=== PATIENT | female | born 1965 | race African-American/Black ===

== ENCOUNTER 2025-01-30 09:45 | Emergency (ER) | payer OTHER, BC, SELFPAY ==
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
--- NOTE | ~2025-01-30 | XR_ITS ---
AP view of the pelvis and AP and lateral views of the left hip Clinical history: Pain Findings: No acute fracture or dislocation is seen. Osseous alignment is anatomic. Bilateral hip and SI joint spaces are preserved. Soft tissues are unremarkable. Impression: No significant abnormality is seen. Reviewed, dictated and finalized at [facility]. Impression: No significant abnormality is seen.
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
[2025-01-30 09:51] VITALS: BP 172/84; PULSE 87; RESP 20; TEMP 36.4; O2SAT 97
[2025-01-30 10:48] VITALS: BP 148/76; PULSE 81; RESP 14; O2SAT 99
[2025-01-30 11:16] VITALS: BP 149/73; PULSE 77; RESP 14; O2SAT 99
[2025-01-30] MEDS: TETANUS,DIPHTHERIA,AC PERTUSSIS ADULT (0.5 ML) BOOSTRIX IM (13:04)
[2025-01-30 13:05] VITALS: BP 159/73; PULSE 77; RESP 17; O2SAT 100
--- OUTSIDE RECORDS SUMMARY | 2025-01-30 13:19 | XMS_ITS | Referral Summary ---
Author Organization [facility] Medical [facility] [address] Address [address] [place] [address] Care Team Providers Care Hotel Operations Manager Name Role Phone Mark Mcgregor MD Primary Care Provider [phone] Allergies Active Allergy Reactions Criticality Noted Date Comments Lisinopril Cough Low 12/30/2022 Medications aspirin 81 mg enteric coated tabletIndications: prevention of thrombosis Take 1 tablet (81 mg total) by mouth every morning Active carvedilol (COREG) 25 mg tabletIndications: hypertension Take 1 tablet (25 mg total) by mouth 2 (two) times a day with meals Active insulin glargine (TOUJEO) 300 unit/mL (1.5 mL) pen for injectionIndicatio ns:type 2 diabetes mellitus Inject 25 Units under the skin nightly Active solifenacin (VESIcare) 10 mg tabletIndications: Bladder Hyperactivity Take 1 tablet (10 mg total) by mouth nightly Active Synjardy XR 12.5-1,000 mg tablet, IR & ER, biphasic 24hrIndications:ty pe 2 diabetes mellitus Take 1 tablet by mouth 2 (two) times a day 10/11/20 22 Active dorzolamide-timolo l (COSOPT) 2-0.5 % ophthalmic solutionIndication s:open angle glaucoma Administer 1 drop into the right eye 2 (two) times a day 11/26/19 23 Active Afrezza 12 unit cartridge, w/inhalation deviceIndications: type 2 diabetes mellitus Inhale 12 Units 3 (three) times a day before meals 11/21/19 23 Active fluticasone propionate (FLONASE) 50 mcg/actuation nasal sprayIndications:A llergic Rhinitis Administer 2 sprays into each nostril daily as needed for rhinitis Active calcium carbonate/vitamin D3 (CALCIUM WITH VITAMIN D ORAL)Indications:s upplement Take 1,200 mg by mouth every morning Active cholecalciferol 25 mcg (1,000 unit) tabletIndications: Vitamin D Deficiency Take 1 tablet (1,000 Units total) by mouth nightly Active FreeStyle Janes 14 Day Sensor kitIndications:anahi harjit Inject under the skin continuous 01/06/20 23 Active atorvastatin (LIPITOR) 40 mg tabletIndications: hyperlipidemia Take 1 tablet (40 mg total) by mouth every morning 01/13/20 23 Active omeprazole (PriLOSEC) 20 mg capsuleIndications :Stress Ulcer Prophylaxis Take 1 capsule (20 mg total) by mouth every morning Active ondansetron ODT (ZOFRAN-ODT) 4 mg disintegrating tabletIndications: Prevention of Post-Operative Nausea and Vomiting Take 1 tablet (4 mg total) by mouth every 8 (eight) hours as needed for nausea or vomiting 12 tablet 02/06/20 23 Active Additional Information Patient not taking.Informant: Self, Reported on 08/19/2023 semaglutide (RYBELSUS) 7 mg tabletIndications: type 2 diabetes mellitus Take 1 tablet (7 mg total) by mouth daily before breakfast Active ezetimibe (ZETIA) 10 mg tabletIndications: hyperlipidemia Take 1 tablet (10 mg total) by mouth every morning Active omeprazole (PriLOSEC) 40 mg capsule Take 1 capsule (40 mg total) by mouth every morning 06/03/20 23 Active TRESIBA 200 unit/mL (3 mL) pen for injection Inject 25 units every day by subcutaneous route in the morning. 06/30/20 23 Active erythromycin (ILOTYCIN) ophthalmic ointment Apply to left eye 2 (two) times a day as needed (mucous discharge or crusting) Apply to left eye twice a day as needed for mucous discharge or crusting 3.5 g 11 11/16/19 24 Active clobetasoL (TEMOVATE) 0.05 % ointment APPLY TO AFFECTED AREA TWICE A DAY 30 g 2 12/11/19 25 Active Active Problems Problem Noted Date Diagnosed Date Discharge of eye, left 11/18/2023 Assessment & Plan (11/18/2023 12:53 PM STAFF READINESS OFFICER): Erythromycin ophthalmic ointment prescribed to be used BID PRN for mucous discharge. She will return in 1 year or sooner if mucous discharge worsens. 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 She demonstrates appropriate healing -- she has had the prosthesis refit but may benefit from increased prosthesis volume superiorly to increase lid height. She will return in 1 year for annual follow up. Assessment & Plan (06/24/2023 2:19 PM CDT): Arleth Sanchez is doing well after Left Internal Ptosis Repair - Left on 06/10/2023. She demonstrates excellent healing and has been referred for prosthesis adjustment if needed and will follow up in 2 months. Assessment & Plan (05/30/2023 6:34 PM CDT): Left upper eyelid ptosis with complications associated with ocular prosthesis in setting of left anophthalmos. Risks, benefits and alternatives were discussed. Risks of surgery included but were not limited to pain, infection, bleeding, scarring, eyelid asymmetry, need for additional procedures, anesthetic morbidity. Following this discussion, the patient wishes to proceed with left internal upper eyelid ptosis repair. We will schedule this in the near future. Anophthalmos of left eye 04/15/2023 Assessment & Plan (04/15/2023 12:50 PM CDT): Arleth Sanchez is doing well after Left Enucleation Eye With Donor Sclera Covered Implant - Left and TARSORRHAPHY- temporary - Left on 02/05/2023. She demonstrates excellent healing with moderate left upper eyelid ptosis. She is seeing Yesica Parks to determine if additional augmentation can address ptosis. If not possible with prosthesis changes, we have discussed possible left upper eyelid ptosis repair. Neovascular glaucoma of left eye, indeterminate stage 05/02/2019 Assessment & Plan (05/02/2019 2:23 PM CDT): PDR 2/2 to diabetes mellitus (DM) II H/o neovascular glaucoma (NVG), Tmax 35 no light perception (NLP) on the left eye for a year now Anterior chamber with large chronic hyphema -Discussed diode LIQUID HYDROGEN PLANT OPERATOR - pt would prefer to try drops since now not having much pain. Atropine and PF. If pt has pain, she will call to schedule diode LIQUID HYDROGEN PLANT OPERATOR OS. Also discussed enucleation. pt deferred. 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 Hester Ocular hypertension of right eye 05/02/2019 Assessment & Plan (05/02/2019 2:23 PM CDT): Thick CCT and large disc intraocular pressure (IOP) 15 today OCT with borderline inferior thinning Maurer visual field (HVF) with nonspecific defects, status post (s/p) panretinal photocoagulation (PRP) Monitor right for now, no need for further intervention - ok to follow with Dr. Guallpa Resolved Problems Problem Noted Date Diagnosed Date Resolved Date Blind painful left eye 12/31/202204/15 Overview (12/31/2022): Added automatically from request for surgery [id number] Assessment & Plan (12/31/2022 9:48 PM CDT): We had a lengthy discussion with the patient regarding the management options. The nature and risks of enucleation have been discussed in detail including anesthesia, scarring, infection, bleeding, use of donor material, implant migration- extrusion and the possible need for additional treatment. A prosthetic has been demonstrated and care discussed. The need for eye safety and protective eyewear have been covered. They would like to schedule a treatment in the near future as the discomfort is significantly interfering with activities of daily living. Social History Tobacco Use Types Packs/Day Years Used Date Smoking Tobacco: Never Smokeless Tobacco: Never Tobacco Cessation:Counseling Given: Not Answered Alcohol Use Standard Drinks/Week Comments Never 0 (1 standard drink = 0.6 oz pur e alcohol) AUDIT-C Answer Date Recorded Q1: How often do you have a drink containing alc ohol? Monthly or less 06/10/2023 Q2: How many drinks containi ng alcohol do you have on a typical day when you are drinking? 1 or 2 06/10/2023 Q3: How often do you have si x or more drinks on one occasion? Never 06/10/2023 Personal Safety Answer Date Recorded Have you ever been in or are you currently in a harmful physical or emotional relationship or is someone making you feel afraid or unsafe? Denies 06/10/2023 Comments No Sex and Gender Information Value Date Recorded Sex Assigned at Not on file Legal Sex Female 7:11 PM STAFF READINESS OFFICER Gender Identity Not on file Sexual Orientation Not on file Last Filed Vital Signs Vital Sign Reading Time Taken Comments Blood Pressure 130/78 08/19/2023 1:00 PM CDT Pulse 83 06/10/2023 12:26 PM CDT Temperature 36.3 C (97.3 F) 06/10/2023 12:00 PM CDT Respiratory Rate 18 06/10/2023 12:26 PM CDT Oxygen Saturation 100% 06/10/2023 12:26 PM CDT Inhaled Oxygen Concentration - - Weight 119.7 kg (264 lb) 08/19/2023 1:00 PM CDT Height 182.9 cm (6') 08/19/2023 1:00 PM CDT Body Mass Index 35.8 08/19/2023 1:00 PM CDT Plan of Treatment Not on file Medical Devices Implanted Type Area Internal Controls Manager Device Identifier Shelf Expiration Date Model / Serial / Lot Implant Cornea Sclera Whole Left - [id number] - [id number] Implanted:Qty: 1 on 02/05/2023 by Umer Villegas MD at [facility] Left: Eye [employer] 09/07/2023 [id number] / [id number] / [id number] [employer] Mona 22mm 22mm Hard Lightweight Inert Virtually Unbreakable [id number] - [id number] Implanted:Qty: 1 on 02/05/2023 by Umer Villegas MD at [facility] Advanced [facility] Left: Eye [employer] [id number] 10/17/2024 [id number] / / [id number] Procedures Procedure Name Priority Date/Time Associated Diagnosis Comments SCREENING MAMMOGRAM BILATERAL W TIMOTHY Schedule Routine, Read Routine (OP Routine) 09/21/2024 10:58 AM STAFF READINESS OFFICER Encounter for screening mammogram for malignant neoplasm of breast HIGH RISK HPV DNA DETECTION WITH GENOTYPING Routine 08/19/2023 2:54 PM CDT Well woman exam with routine gynecological exam EGFR STAT 08/10/2022 3:33 PM CDT from Last 3 Months or Most Recently Relevant to Health Maintenance Results * Screening Mammogram Bilateral W Timothy (09/21/2024 10:58 AM STAFF READINESS OFFICER) Anatomical Region Laterality Modality Breast Bilateral Mammography Impressions 09/21/2024 11:05 AM STAFF READINESS OFFICER BI-RADS ATLAS category (overall): 1 - Negative There is no mammographic evidence of malignancy. A 1 year screening mammogram is recommended. The patient has been or will be contacted. We recommend annual screening mammography for women at average risk of breast cancer beginning at age 40, based on guidelines of the [place] [employer] (ACR Practice Parameter for the Performance of Screening and Diagnostic Mammography) and [place] [employer]. For women with and elevated risk of breast cancer, please refer to the ACR Practice Parameter for specific screening recommendations. The patient will be entered into a reminder system with a target due date of 1 year for her next screening exam. Narrative 09/21/2024 11:05 AM STAFF READINESS OFFICER Screening Mammogram Bilateral W Timothy: 09/21/24 The study was acquired using full field digital technology and interpreted from soft copy. 2D digital mammographic views, as well as 3D digital tomosynthesis were performed in the CC and MLO projections. This study was resulted using Computer-Aided Detection (CAD). CLINICAL: Encounter for screening mammogram for malignant neoplasm of breast. Medical history includes hypertension, diabetes mellitus, PONV, motion sickness, and sleep apnea. History of breast cancer in Mother's Sister. COMPARISONS: 07/01/2023 Screening Mammogram Bilateral W Timothy 12/10/2021 Screening Mammogram Bilateral W Timothy 03/06/2020 Screening Mammogram Bilateral W Timothy BREAST TISSUE: The breasts are almost entirely fatty. FINDINGS: No suspicious masses, suspicious calcifications, or other suspicious findings are seen within either breast. There has been no suspicious change. Mark Mcgregor MD IMG MAMMO PROCEDURES Final Resul t * High Risk HPV DNA Detection with Genotyping (Molecular component) (08/19/2023 2:54 PM CDT) HPV HR 16 Not Detected Not Detected BUNNY Comment:Testing performed by : [facility], [address] [place]., [address] HPV HR 18 Not Detected Not Detected BUNNY Comment:Testing performed by : [facility], [address] [place]., [address] HPV HR Non 16/18 Not Detected Not Detected BUNNY Comment: Interpretive Data Nucleic acid amplification for detection of high-risk Human Papilloma virus (HPV) is performed by the Lilly Bienvenido 6800 HPV test. This assay specifically detects HPV-16 and HPV-18 genotypes. The following HPV genotypes are detected as high-risk HPV: HPV-31, 33, 35, ,39, 45, 51, 52, 56, 58, 59, 66, and 68. This assay has been approved by the [place] Food and Drug Administration for detection of HPV in cervical specimens collected by a physician using an endocervical brush/spatula or cervical broom and placed in the ThinPrep Pap Test PreservCyt collection containers. The performance characteristics of this test have been verified by the [facility] Molecular Infectious Disease laboratory. Correlate with separately reported cytology results, as applicable. Interpretive data last revised 23 Testing performed by: [facility], [address] [place]., [address] Endocervical 08/19/2023 2:54 PM CDT 08/23/2023 2:48 PM STAFF READINESS OFFICER Narrative [facility] - 08/24/2023 3:02 AM STAFF READINESS OFFICER Clinical history and diagnosis->screening Number of vials->1 Testing type->Screening Last menstrual period (date if known)->Postmenopausal Elzbieta Fortune MD LAB BODY FLUIDS AND STOOLS ORD ERABLES Final Result Performing Organization Address [facility] Co de Phone Number [facility] [address] [place] [address] * eGFR (08/10/2022 3:33 PM CDT) eGFR 74 mL/min/1. 73 m2 BUNNY Comment: Interpretive Data Reference Interval Normal >/= 90 mL/min/1.73m2 Mildly decreased* 60 - 89 mL/min/1.73m2 Mildly to moderately decreased 45 - 59 mL/min/1.73m2 Moderately to severely decreased 30 - 44 mL/min/1.73m2 Severely decreased 15 - 29 mL/min/1.73m2 Kidney Failure < 15 mL/min/1.73m2 *Relative to young adult level Estimated glomerular filtration rate is determined by the 2020 CKD-EPI equation recommended by the National Kidney Foundation (A Unifying Approach to GFR Estimation: Recommendations of the NKF-ASK Task Force on Reassessing the Inclusion of Race in Diagnosing Kidney Disease, JASN 2020). The CKD-EPI equation should not be used for patients with unstable renal function and has not been validated in children and those over 70. Current interpretive data was last reviewed 2021. Testing performed by: [facility], [address] [place] [address]., [id number] Blood 08/10/2022 3:33 PM CDT 08/10/2022 3:36 PM CDT us Shyann CHAKRABORTY LAB BLOOD ORDERABLES Liz l Result [facility] [address] [place] [address] from Last 3 Months or Most Recently Relevant to Health Maintenance Insurance [facility] [employer] [facility] CHOICE PLUS [facility] HMO/PPO Address: [address] [address] [place] [address] [facility] [employer] Care Teams Hotel Operations Manager Relationship Specialty Start Date End Date Mark Mcgregor MD [address] [facility] [address] [place] [address] PCP - General 06/21/19
--- OUTSIDE RECORDS SUMMARY | 2025-01-30 13:19 | XMS_ITS | Clinical Summary ---
Author Organization [facility] Medical [facility] 2 Address [address] [facility] [place] [address] Care Team Providers Care Meter/Relay Technician Name Role Phone Mark Mcgregor MD Primary Care Provider [phone] Allergies Active Allergy Reactions Criticality Noted Date [...] 11/18/2023 Assessment & Plan (11/18/2023 12:53 PM PRINTED CIRCUIT BOARD ASSEMBLY REPAIRER): Erythromycin ophthalmic ointment prescribed to be used BID PRN for mucous discharge. She will return in 1 year or sooner if mucous discharge worsens. 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 Atropine and PF. If pt has pain, she will call to schedule diode HYDROELECTRIC SYSTEMS TECHNICIAN OS. Also discussed enucleation. pt deferred. Stable [...] (12/31/2022): Added automatically from request for surgery [id number] Assessment & Plan (12/31/2022 9:48 PM CDT): [...] significantly interfering with activities of daily living. Surgical History Surgery Date Site/Laterality Comments RETINAL LASER PROCEDURE CATARACT EXTRACTION W/ INTRAOCULAR LENS IMPLANT Bilateral 2019 Right; 2017 Left VITRECTOMY Bilateral BREAST BIOPSY 07/23/2016 Right Benign KELOID EXCISION 10/18/1979 - 10/17/1980 Bilateral ear LIPOMA RESECTION 10/18/2001 - 10/17/2002 Right foot ENUCLEATION 02/05/2023 Left Medical History Medical History Date Comments Diabetes mellitus (HCC) Dxd 1996 Diabetic retinopathy (HCC) Hypertension DXD 2014 PONV (postoperative nausea and vomiting) Sleep apnea Pt stopped using CPAP machine ~2021 Hyperlipidemia Treated with sta tin Motion sickness Family History Medical History Relation Name Comments Diabetes Father Hypertension Father Lung cancer Father's Brother 1 Prostate cancer Father's Brother 2 Lung cancer Father's Sister Cancer Mother Colon cancer Mother Diabetes Mother Glaucoma Mother Hypertension Mother Colon cancer Mother's Brother Breast cancer Mother's Sister 1 Colon polyps Mother's Sister 1 Colon polyps Mother's Sister 2 Uterine cancer Other Great Great grandmother Lung cancer Paternal Grandfather Lung cancer Paternal Grandmother Diabetes Sister Hypertension Sister Anesthesia problems Neg Hx Ovarian cancer Neg Hx Pancreatic cancer Neg Hx Relation Name Status Comments Father Father's Brother 1 Father's Brother 2 Father's Sister Mother Mother's Brother Mother's Sister 1 Mother's Sister 2 Other Great Great grandmother Paternal Grandfather Paternal Grandmother Sister Social History Tobacco Use Types Packs/Day Years [...] on file Legal Sex Female 7:11 PM PRINTED CIRCUIT BOARD ASSEMBLY REPAIRER Gender Identity Not on file Sexual Orientation Not on file Obstetrics History Para Term AB IAB SAB Ectopic Multiple Livin g Live Births 1 0 1 Date Outcome GA Total Labor Labor/2nd/3rd Weight Sex Type Anes PTL Deisy A1 A5 Name Clin AB Last Filed Vital Signs Vital Sign Reading [...] 08/19/2023 1:00 PM CDT Plan of Treatment Health Maintenance Due Date Last Done Comments Albumin Creatinine Ratio, Urine 1963 Colon Cancer Screening-Colonoscopy 1963 Depression Screening 1963 Hemoglobin A1C 1963 Hepatitis C Screening 1963 Foot Exam 1963 Hepatitis B Screening 1981 Lipid Panel 01/10/2012 01/09/2011 Pneumococcal vaccine <65 (2 of 2 - PCV) 07/29/2018 07/29/2017, 06/24/2017, 03/09/2017, Additional history exists Dilated Eye Exam 05/02/2020 05/02/2019 eGFR 08/10/2023 08/10/2022 Covid-19 Vaccine (2023-2 5 season) 2024 07/18/2022, 07/24/2021, 01/02/2021, Additional history exists Cervical Cancer Screening 08/19/2024 08/19/2023, 11/2022 Regular Well Visit/Exam 18-64 08/19/2024 08/19/2023 Breast Cancer Screening-Mammogram 09/21/2025 09/21/2024, 07/01/2023, 12/10/2021, Additional history exists DTaP/Tdap/Td Vaccine (5 - Td or Tdap) 07/31/2027 07/31/2017, 06/24/2017, 03/09/2017, Additional history exists Zoster Vaccine Completed 07/12/2019, 08/19, 06/17/2018, Additional history exists Influenza Vaccine Completed 08/10/2024, , 07/18/2022, Additional history exists Medical Devices Implanted Type Area Strawhat Blocking Operator Device Identifier Shelf Expiration Date Model / Serial / Lot Implant Cornea Sclera Whole Left - [id number] - [id number] Implanted:Qty: 1 on 02/05/2023 by Umer Villegas MD at [facility] Left: Eye Mid [employer] 09/07/2023 [id number] / [id number] / [id number] [employer] Red Level 22mm 22mm Hard Lightweight Inert Virtually Unbreakable [id number] - [id number] Implanted:Qty: 1 on 02/05/2023 by Umer Villegas MD at [facility] Left: Eye [employer] [id number] 10/17/2024 [id number] / / [id number] Procedures Procedure Name Priority Date/Time Associated Diagnosis Comments SCREENING MAMMOGRAM BILATERAL W TIMOTHY Schedule Routine, Read Routine (OP Routine) 09/21/2024 10:58 AM PRINTED CIRCUIT BOARD ASSEMBLY REPAIRER Encounter for screening mammogram for malignant neoplasm of breast HIGH RISK HPV DNA DETECTION WITH GENOTYPING Routine 08/19/2023 2:54 PM CDT Well woman exam with routine gynecological exam EGFR STAT 08/10/2022 3:33 PM CDT from Last 3 Months or Most Recently Relevant to Health Maintenance Results * Screening Mammogram Bilateral W Timothy (09/21/2024 10:58 AM PRINTED CIRCUIT BOARD ASSEMBLY REPAIRER) Anatomical Region Laterality Modality Breast Bilateral Mammography Impressions 09/21/2024 11:05 AM PRINTED CIRCUIT BOARD ASSEMBLY REPAIRER BI-RADS ATLAS category (overall): 1 - Negative There is no mammographic evidence of malignancy. A 1 year screening mammogram is recommended. The patient has been or will be contacted. We recommend annual screening mammography for women at average risk of breast cancer beginning at age 40, based on guidelines of the [employer] (ACR Practice Parameter for the Performance of Screening and Diagnostic Mammography) and [employer]. For women with and elevated risk of breast cancer, please refer to the ACR Practice Parameter for specific screening recommendations. The patient will be entered into a reminder system with a target due date of 1 year for her next screening exam. Narrative 09/21/2024 11:05 AM PRINTED CIRCUIT BOARD ASSEMBLY REPAIRER Screening Mammogram Bilateral W Timothy: 09/21/24 The [...] been no suspicious change. Mark Mcgregor MD IM MAMMO PROCEDURES Final Resul t * High Risk HPV DNA Detection with Genotyping (Molecular component) (08/19/2023 2:54 PM CDT) HPV HR 16 Not Detected Not Detected [facility] Comment:Testing performed by : [facility], [address] [place] [address] HPV HR 18 Not Detected Not Detected [facility] Comment:Testing performed by : [facility], [address] [place] [address] HPV HR Non 16/18 Not Detected Not Detected [facility] Comment: Interpretive Data Nucleic acid amplification for [...] this test have been verified by the [facility] Molecular Infectious Disease laboratory. Correlate with separately reported cytology results, as applicable. Interpretive data last revised 23 Testing performed by: [facility], [address] [place]., [address] Endocervical 08/19/2023 2:54 PM CDT 08/23/2023 2:48 PM PRINTED CIRCUIT BOARD ASSEMBLY REPAIRER Narrative [facility] - 08/24/2023 3:02 AM PRINTED CIRCUIT BOARD ASSEMBLY REPAIRER Clinical history and diagnosis->screening Number of vials->1 Testing type->Screening Last menstrual period (date if known)->Postmenopausal us Elzbieta Fortune MD LAB BODY FLUIDS AND STOOLS ORD ERABLES Final Result [facility] [address] [facility] Department [place] [address] * eGFR (08/10/2022 3:33 PM CDT) eGFR 74 mL/min/1. 73 m2 [facility] Comment: Interpretive Data Reference Interval Normal >/= [...] was last reviewed 2021. Testing performed by: [facility], [address] [place] [address]., [id number] Blood 08/10/2022 3:3 3 PM CDT 08/10/2022 3:36 PM CDT us Shyann CHAKRABORTY LAB BLOOD ORDERABLES Liz gage Result [facility] [address] [facility] [place] [address] from Last 3 Months or Most Recently Relevant to Health Maintenance Insurance [facility] [facility] H[facility]/PPO Address: [address] [address] [place] [address] [facility] [employer] Care Teams Meter/Relay Technician Relationship Specialty Start Date End Date Mark Mcgregor MD [address] [facility] [address] [place] [address] PCP - General 06/21/19
--- OUTSIDE RECORDS SUMMARY | 2025-01-30 13:20 | XMS_ITS | Clinical Summary ---
Author Organization [facility] Address [address] [place] [address] Care Team Providers Care [employer] Name Role Phone Mark Mcgregor MD Primary Care Provider Allergies Active Allergy Reactions Criticality Noted Date Comments Lisinopril Cough Low 12/30/2022 Medications ASPIRIN LOW DOSE 81 MG tablet Take 1 tablet (81 mg total) by mouth daily with supper. Active atorvastatin (LIPITOR) 40 MG tablet Take 1 tablet (40 mg total) by mouth daily. 4 Active carvedilol (COREG) 25 MG tablet Take 1 tablet (25 mg total) by mouth every 12 (twelve) hours. Active cholecalcifero l (VITAMIN D-[address]) 25 mcg Tab tablet Take 1 tablet (1,000 Units total) by mouth daily. Active clobetasol (TEMOVATE) 0.05 % ointment Apply topically 2 (two) times daily. APPLY TO AFFECTED AREA Active Dorzolamide HCl-Timolol Mal PF 2-0.5 % Solution Place 1 drop into the right eye 2 (two) times daily. 4 Active SYNJARDY XR 12.5-1000 MG TABLET SR 24 HR Take 1 tablet by mouth 2 (two) times daily. 4 Active erythromycin (ROMYCIN) 5 MG/GM (0.5%) ophthalmic ointment Place into the left eye 2 (two) times daily as needed (for discharge). 5 Active ezetimibe (ZETIA) 10 MG tablet Take 1 tablet (10 mg total) by mouth daily. Active TRESIBA FLEXTOUCH 200 UNIT/ML injection (PEN) Inject 25 Units into the skin every morning. 4 Active AFREZZA 12 units Powder Take 12 Units by mouth 3 (three) times daily. 5 Active omeprazole (PRILOSEC) 40 MG capsule Take 1 capsule (40 mg total) by mouth every morning. 5 Active solifenacin succinate (VESICARE) 10 MG Tab Take 1 tablet (10 mg total) by mouth every evening. Active doxycycline hyclate (VIBRAMYCIN) 100 MG capsule Take 1 capsule (100 mg total) by mouth 2 (two) times daily. 20 capsule 5 Active HYDROcodone-ac etaminophen (NORCO) 5-325 MG tabletIndicati ons:Acute Pain < 3 Day Supply Take 1 tablet by mouth every 6 (six) hours as needed. Indications: Acute Pain < 3 Day Supply Do not exceed 4g of acetaminophen in a day. 10 tablet 5 Active Encounters Date Type Department Care Team Description 12/04/2024 12:02 PM SORT LINE - 12/04/2024 3:49 PM [facility] Emergency [facility] [place] [address] Rekha Richey PA Derm Problem Discharge Disposition: Home or Self Care (Routine Discharge) 12/04/2024 10:17 AM SORT LINE - 12/04/2024 11:11 AM SORT LINE Hospital Encounter [facility] [address] [place] [address] Tawnya Allen MD Rash Discharge Disposition: Transfer to Acute Care Hospital 12/04/2024 Travel from Last 3 Months Social History Tobacco Use Types Packs/Day Years Used Date Smoking Tobacco: Never Smokeless Tobacco: Never Tobacco Cessation:Counseling Given: Not Answered Alcohol Use Standard Drinks/Week Comments Yes 0 (1 standard drink = 0.6 oz pur e alcohol) Comments No Sex and Gender Information Value Date Recorded Sex Assigned at Female 12/04/2024 9:59 AM SORT LINE Legal Sex Female 4:41 PM CDT Gender Identity Not on file Sexual Orientation Not on file Last Filed Vital Signs Vital Sign Reading Time Taken Comments Blood Pressure 101/69 12/04/2024 2:55 PM SORT LINE Pulse 84 12/04/2024 2:55 PM SORT LINE Temperature 36.6 C (97.9 F) 12/04/2024 11:23 AM SORT LINE Respiratory Rate 20 12/04/2024 2:55 PM SORT LINE Oxygen Saturation 100% 12/04/2024 2:55 PM SORT LINE Inhaled Oxygen Concentration - - Weight 122.5 kg (270 lb) 12/04/2024 10:20 AM SORT LINE Height 180.3 cm (5' 11 ) 12/04/2024 10:20 AM SORT LINE Body Mass Index 37.66 12/04/2024 10:20 AM SORT LINE Plan of Treatment Health Maintenance Due Date Last Done Comments Cervical Cancer Screening Pap Smear (Age 30 to 64) Every 3 Years 1963 Colorectal Cancer Screening Colonoscopy (10 Years) 1963 Annual Physical 1966 Hepatitis C 1981 Cervical Cancer Screening Pap with HPV Testing (Age 30 to 64) Every 5 Years 1993 Cervical Cancer Screening with HPV 1993 Mammogram Screening 09/21/2026 09/21/2024, 07/01/2023, 12/10/2021, Additional history exists DTaP, Tdap and Td Vaccines (2 - Td or Tdap) 07/31/2027 07/31/2017 Pneumococcal Vaccine: Pediatrics (0 to 5 Years) and At-Risk Patients (6 to 49 Years) Aged Out 07/29/2017 No longer eligible based on patient's age to complete this topic Zoster Vaccines Completed 09/13/2018, 06/17/2018 RSV Immunization or 60+ Years Completed 08/02/2023 COVID-19 Vaccine Completed 08/10/2024, , 07/21/2022, Additional history exists Meningococcal B Vaccine Aged Out No l onger eligible based on patient's age to complete this topic Meningococcal Vaccine Aged Out No octavio pankaj eligible based on patient's age to complete this topic RSV Immunizations Under 20 Months Aged Out No longer eligible based on patient's age to complete this topic Procedures Procedure Name Priority Date/Time Associated Diagnosis Comments CT ABD+PEL W CON STAT 12/04/2024 1:33 PM SORT LINE LACTIC ACID TIMED 12/04/2024 12:27 PM SORT LINE COMPREHENSIVE METABOLIC PANEL STAT 12/04/2024 12:27 PM SORT LINE CBC W/DIFF AUTOMATED STAT 12/04/2024 12:27 PM SORT LINE from Last 3 Months Results * CT ABD+PEL W CON (12/04/2024 1:33 PM SORT LINE) Anatomical Region Laterality Modality Abdomen Computed Tomogra phy 12/04/2024 1:41 PM SORT LINE Impressions 12/04/2024 2:18 PM SORT LINE Impression: 1. No acute intra-abdominal pelvic process, findings 2. Incidental finding left renal malrotation with the upper pole 3.6 cm Bosniak 1 benign simple cyst. No follow-up indicated. 3. Unremarkable CT imaging appearance of the abdominal pannus, bilateral inguinal regions, perineum and ischiorectal fossae, without inflammatory change. 4. Other nonemergent, incidental, and potential chronic findings as discussed in the report body above. Ordered By: REKHA RICHEY Interpreted By: Lexy Davis MD, 12/04/2024 1:41 PM Narrative 12/04/2024 2:18 PM SORT LINE [address] [address] Examination: CT abdomen and pelvis with IV contrast. Exam Date/Time: 12/04/2024 1:26 PM Indication: 59 female. Inguinal skin for breakdown. Evaluation for infection, fourniers Comparison: None Technique: Computed tomography of the abdomen and pelvis performed following uneventful intravenous administration of 100 mL Isovue-370 contrast. A dose lowering technique was used for this procedure, which may include, but is not limited to, dose reduction technique, automated exposure control, the use of iterative reconstruction, and ALARA (As Low As Reasonably Achievable) / Image Gently techniques. CT Findings: LOWER CHEST Normal cardiac size. No pericardial or pleural effusion. Clear lung bases . UPPER ABDOMEN Liver and bile ducts: Normal size, contour and enhancement. No focal lesion. Hepatic and portal venous systems are patent. No intra or extrahepatic biliary tree dilatation. Gallbladder: Present and unremarkable. No calcific cholelithiasis or inflammation. Pancreas: Normal. Spleen: Normal. RETROPERITONEUM Adrenals: Normal. Kidneys: Left kidney is malrotated but otherwise both kidneys are normal in size contour and enhancement. Left renal superior pole 3.6 cm Bosniak 1 benign simple cyst. No suspicious focal lesion, collecting system obstruction or perinephric stranding. Lymph nodes: No lymphadenopathy in the abdomen or pelvis. BOWEL AND PERITONEUM Bowel: Normal in caliber and wall thickness. Normal noninflamed appendix. Sigmoid colon diverticulosis without diverticulitis Free air or fluid: None. VASCULATURE Minimal abdominal aortic atherosclerosis. No abdominal aortic aneurysm. Mesenteric and branch vessels are patent. There is medium and small vessel arterial calcinosis including the visceral branches, splenic and hepatic arteries, and renal arteries. 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 PELVIS Atrophic the anteverted uterus. Nonspecific frontal calcifications may represent a small partially calcified fibroid. Adnexa are within normal limits. No pelvic mass. Unremarkable thin-walled urinary bladder. BONES/SOFT TISSUES No significant musculoskeletal finding. Abdominal wall pannus unremarkable without stranding. Bilateral inguinal regions appear unremarkable. Right inguinal creases deeper, entirely nonspecific. There is no septated infectious/inflammatory stranding, fluid collection or abscess. The perineum and ischiorectal fossae are unremarkable. Multilevel mild disc and endplate degenerative change, most prominent at L5-S1. No concerning osteolytic or blastic lesion. Procedure Note Lexy Davis MD - 12/04/[address] [address] Examination: CT abdomen and pelvis with IV contrast. Exam Date/Time: 12/04/2024 1:26 PM Indication: 59 female. Inguinal skin for breakdown. Evaluation forinfection, fourniers Comparison: None Technique: Computed tomography of the abdomen and pelvis performedfollowing uneventful intravenous administration of 100 mL Isovue-370contrast. A dose lowering technique was used for this procedure, which mayinclude, but is not limited to, dose reduction technique, automatedexposure control, the use of iterative reconstruction, and ALARA (As LowAs Reasonably Achievable) / Image Gently techniques. CT Findings: LOWER CHEST Normal cardiac size. No pericardial or pleural effusion. Clear lungbases . UPPER ABDOMEN Liver and bile ducts: Normal size, contour and enhancement. No focallesion. Hepatic and portal venous systems are patent. No intra orextrahepatic biliary tree dilatation. Gallbladder: Present and unremarkable. No calcific cholelithiasis orinflammation. Pancreas: Normal. Spleen: Normal. RETROPERITONEUM Adrenals: Normal. Kidneys: Left kidney is malrotated but otherwise both kidneys are normalin size contour and enhancement. Left renal superior pole 3.6 cm Bosniak 1 benign simple cyst. Nosuspicious focal lesion, collecting system obstruction or perinephricstranding. Lymph nodes: No lymphadenopathy in the abdomen or pelvis. BOWEL AND PERITONEUM Bowel: Normal in caliber and wall thickness. Normal noninflamed appendix.Sigmoid colon diverticulosis without diverticulitis Free air or fluid: None. VASCULATURE Minimal abdominal aortic atherosclerosis. No abdominal aortic aneurysm.Mesenteric and branch vessels are patent. There is medium and small vesselarterial calcinosis including the visceral branches, splenic and hepaticarteries, and renal arteries. Bilateral dual renal arteries with smallaccessory lower pole branches arising at a few centimeters inferiorly fromthe abdominal aorta bilaterally. PELVIS Atrophic the anteverted uterus. Nonspecific frontal calcifications mayrepresent a small partially calcified fibroid. Adnexa are within normallimits. No pelvic mass. Unremarkable thin-walled urinary bladder. BONES/SOFT TISSUES No significant musculoskeletal finding. Abdominal wall pannus unremarkablewithout stranding. Bilateral inguinal regions appear unremarkable. Rightinguinal creases deeper, entirely nonspecific. There is no septatedinfectious/inflammatory stranding, fluid collection or abscess. Theperineum and ischiorectal fossae are unremarkable. Multilevel mild disc and endplate degenerative change, most prominent atL5-S1. No concerning osteolytic or blastic lesion. Impression: 1. No acute intra-abdominal pelvic process, findings 2. Incidental finding left renal malrotation with the upper pole 3.6 cmBosniak 1 benign simple cyst. No follow-up indicated. 3. Unremarkable CT imaging appearance of the abdominal pannus, bilateralinguinal regions, perineum and ischiorectal fossae, without inflammatorychange. 4. Other nonemergent, incidental, and potential chronic findings asdiscussed in the report body above. Ordered By: REKHA RICHEY Interpreted By: Lexy Davis MD, 12/04/2024 1:41 PM us Rekha Richey CT CT Final Result * (ABNORMAL) COMPREHENSIVE METABOLIC PANEL (12/04/2024 12:27 PM SORT LINE) GLUCOSE 298(H) 70 - 99 MG/DL 12/04/2024 1:15 PM SORT LINE [facility] BUN 16 7 - 18 MG/DL 12/04/2024 1:15 PM [facility] CREATININE S/P/B 1.21(H) 0.55 - 1.02 MG/DL 12/04/2024 1:15 PM [facility] SODIUM S/P/B 133(L) 136 - 145 MMOL/L 12/04/2024 1:15 PM [facility] POTASSIUM S/P/B 4.3 3.5 - 5.1 MMOL/L 12/04/2024 1:15 PM [facility] CHLORIDE S/P/B 101 97 - 115 MMOL/L 12/04/2024 1:15 PM [facility] CO2 28.6 21 - 32 MMOL/L 12/04/2024 1:15 PM [facility] CALCIUM S/P/B 9.5 8.5 - 10.1 MG/DL 12/04/2024 1:15 PM [facility] BILIRUBIN TOTAL S/P/B 0.5 0.2 - 1.2 MG/DL 12/04/2024 1:15 PM [facility] Comment: THIS ASSAY IS NOT RECOMMENDED FOR PATIENTS UNDERGOING TREATMENT WITH ELTROMBOPAG DUE TO THE POTENTIAL FOR FALSELY ELEVATED RESULTS. TOTAL PROTEIN S/P/B 7.3 6.4 - 8.2 G/DL 12/04/2024 1:15 PM [facility] ALBUMIN S/P/B 3.8 3.4 - 5.0 G/DL 12/04/2024 1:15 PM [facility] AST 11(L) 15 - 37 U/L 12/04/2024 1:15 PM [facility] ALT 21 14 - 55 U/L 12/04/2024 1:15 PM [facility] ALKALINE PHOSPHATASE S/P/B 71 50 - 136 U/L 12/04/2024 1:15 PM [facility] ANION GAP 3.4 2 - 10 MMOL/L 12/04/2024 1:15 PM [facility] BUN CREATININE RATIO 13.2 6 - 26 12/04/2024 1:15 PM [facility] A/G RATIO 1.1 1.0 - 2.0 RATIO 12/04/2024 1:15 PM [facility] GFR ESTIMATE 51(L) >90 ML/MIN/1.7 3 M2 12/04/2024 1:15 PM [facility] Comment: NOTE: eGFR is not calculated for patients <18 years of age or gender unknown. This is an estimated GFR calculation using the new CKD EPI creatinine equation without race and so does not require a correction factor for race. This estimated GFR should not be used for calculating drug doses. 12/04/2024 12:2 7 PM SORT LINE us [facility] Final Result [facility] [address] [place] [address], [place] [phone] * LACTIC ACID - SINGLE (12/04/2024 12:27 PM SORT LINE) [facility] LACTIC ACID VENOUS 1.9 0.4 - 2.0 MMOL/L 12/04/2024 1:13 PM SORT LINE [facility] 12/04/2024 12:2 7 PM SORT LINE [facility] Final Result [facility] [address] [place] [address], * (ABNORMAL) CBC W/DIFF AUTOMATED (12/04/2024 12:27 PM SORT LINE) [facility] WBC 5.48 4.5 - 11.0 x10'3/uL 12/04/2024 12:52 PM SORT LINE [facility] RBC 5.03 4.20 - 5.40 x10'6/uL 12/04/2024 12:52 PM SORT LINE [facility] HGB 13.1 12.0 - 16.0 G/DL 12/04/2024 12:52 PM SORT LINE [facility] HCT 42.0 38.0 - 48.0 % 12/04/2024 12:52 PM SORT LINE [facility] MCV 83.5 81.0 - 99.0 FL 12/04/2024 12:52 PM SORT LINE [facility] MCH 26.0(L) 27.0 - 31.0 PG 12/04/2024 12:52 PM SORT LINE [facility] MCHC 31.2(L) 32.0 - 36.0 G/DL 12/04/2024 12:52 PM SORT LINE [facility] RDW 15.3(H) 11.5 - 14.5 % 12/04/2024 12:52 PM [facility] PLT 275 130 - 400 x10'3/uL 12/04/2024 12:52 PM [facility] MPV 11.3 9.3 - 12.2 FL 12/04/2024 12:52 PM [facility] DIFFERENTIAL TYPE AUTOMATED DIFFERENTIAL 12/04/2024 12:52 PM SORT LINE [facility] NEUTROPHILS % 68.9 % 12/04/2024 12:52 PM [facility] LYMPHOCYTES % 19.7 % 12/04/2024 12:52 PM [facility] MONOCYTES % 9.1 % 12/04/2024 12:52 PM [facility] EOSINOPHILS 0.5 % 12/04/2024 12:52 PM [facility] BASOPHILS 0.7 % 12/04/2024 12:52 PM [facility] IMMATURE GRANS % 1.1 % 12/04/19 12:52 PM [facility] ABS. NEUTROPHILS 3.77 1.80 - 7.70 x10'3/uL 12/04/2024 12:52 PM [facility] ABS. LYMPHOCYTES 1.08 1.00 - 4.80 x10'3/uL 12/04/2024 12:52 PM [facility] ABS. MONOCYTES 0.50 0.24 - 0.86 x10'3/uL 12/04/2024 12:52 PM [facility] ABS. EOSINOPHILS 0.03(L) 0.04 - 0.36 x10'3/uL 12/04/2024 12:52 PM [facility] ABS. BASOPHILS 0.04 0.01 - 0.08 x10'3/uL 12/04/2024 12:52 PM SORT LINE [facility] ABS. IMMATURE GRANULOCYTES 0.06 0.00 - 0.49 x10'3/uL 12/04/2024 12:52 PM SORT LINE [facility] 12/04/2024 12:2 7 PM SORT LINE [facility] Final Result [facility] [address] [place] [address], from Last 3 Months Insurance Care Teams [employer] Relationship Specialty Start Date End Date Mark Mcgregor MD [address] [place] [address] PCP - General INTERNAL MEDICINE 12/04/24
--- OUTSIDE RECORDS SUMMARY | 2025-01-30 13:20 | XMS_ITS | Data Portability ---
Author Organization [facility], [employer] Address [address] [address] Care Team Providers Care Case Management Assistant Name Role Phone WOODYBERYL RIZZO Cardiothoracic Anesthesia Technician Assessment Encounter Date Assessment Date Assessment LastModified by Organization Details LastModified Time 03/25/2023 03/25/2023 Patient presente d for follow up. Studies ordered as below. Discussed plan with patient/caregiver , who expressed understanding. Follow up as noted below. Not available 03/25/2023 17:49:02 07/07/2023 07/07/2023 Recommends healthy nutrition, including a diet rich in fruits and vegetables, minimizing simple carbohydrates, salt, and saturated fats. Encouraged regular cardiovascular exercise such as walking at least 30 minutes daily, 5 times per week. Not available 07/07/2023 17:29:07 11/16/2023 11/16/2023 Recommends healthy nutrition, including a diet rich in fruits and vegetables, minimizing simple carbohydrates, salt, and saturated fats. Encouraged regular cardiovascular exercise such as walking at least 30 minutes daily, 5 times per week. Not available 11/16/2023 17:40:41 03/02/2024 03/02/2024 Recommends healthy nutrition, including a diet rich in fruits and vegetables, minimizing simple carbohydrates, salt, and saturated fats. Encouraged regular cardiovascular exercise such as walking at least 30 minutes daily, 5 times per week. Not available 03/02/2024 18:36:10 07/05/2024 07/05/2024 Recommends healthy nutrition, including a diet rich in fruits and vegetables, minimizing simple carbohydrates, salt, and saturated fats. Encouraged regular cardiovascular exercise such as walking at least 30 minutes daily, 5 times per week. Not available 07/05/2024 13:46:47 Plan of Treatment Reminders Order Date Submit Date Provider Last Modified By Organization Details Last Modified Time Details Appointments None recorded. Lab lipid panel, serum 2023 024 [facility], [address] [facility], [place], [address], 4 08:10:45 CBC 2023 024 [facility], [address], [place], [address], 4 08:10:45 HbA1c (hemoglobin A1c), blood 2023 024 [facility], [address], [place], [address], 4 08:10:45 CMP, serum or plasma 2023 024 [facility], [address], [place], [address], 4 08:10:45 microalbumi n/creatinin e, mass ratio, urine 2023 024 [facility], [address], [place], [address], 4 08:10:45 lipid panel, serum 2023 024 [email or web address] 6 [facility], [address], [address], [place], [address], 4 08:16:05 CBC 2023 024 [email or web address] 6 [facility], [address], [address], [place], [address], 4 08:16:04 HbA1c (hemoglobin A1c), blood 2023 024 [email or web address] 6 [facility], [address], [address], [place], [address], 4 08:16:04 CMP, serum or plasma 2023 024 [email or web address] 6 [facility], [address], [address], [place], [address], 4 08:16:04 microalbumi n/creatinin e, mass ratio, urine 2023 024 [email or web address] 6 [facility], [address], [address], [place], [address], 4 08:16:04 lipid panel, serum 2023 024 [facility], [address], [address], [place], [address], 4 08:09:49 CBC 2023 024 [facility], [address], [address], [place], [address], 4 08:09:50 HbA1c (hemoglobin A1c), blood 2023 024 [facility], [address], [address], [place], [address], 4 08:09:50 CMP, serum or plasma 2023 024 [facility], [address], [address], [place], [address], 4 08:09:51 vitamin B12, serum 2023 024 [employer] [facility], [address], [address], [place], [address], 4 08:09:51 microalbumi n/creatinin e, mass ratio, urine 2023 024 [facility], [address], [address], [place], [address], 4 08:09:50 HIV 1+2 Ab + HIV1 p24 Ag, quantitativ e immunoassay , serum 2023 024 [facility], [address], [address], [place], [address], 4 08:09:50 lipid panel, serum 2022 023 [facility], [address], [address], [place], [address], 3 08:11:57 CBC 2022 023 [facility], [address], [address], [place], [address], 3 08:11:57 HbA1c (hemoglobin A1c), blood 2022 023 [facility], [address], [address], [place], [address], 3 08:11:57 CMP, serum or plasma 2022 023 [facility], [address], [address], [place], [address], 3 08:11:57 vitamin B12, serum 2022 023 [employer] [facility], [address], [address], [place], [address], 3 08:11:58 microalbumi n/creatinin e, mass ratio, urine 2022 023 [facility], [address], [address], [place], [address], 3 08:11:57 HIV 1+2 Ab + HIV1 p24 Ag, quantitativ e immunoassay , serum 2022 023 [facility], [address], [address], [place], [address], 3 08:11:57 lipid panel, serum 2022 023 [facility], [address], [address], [place], [address], 3 09:10:33 CBC 2022 023 [facility], [address], [address], [place], [address], 3 09:10:34 hemoglobin (Hb) electrophor esis, blood 2022 023 [facility], [address], [address], [place], [address], 3 09:10:34 microalbumi n/creatinin e, mass ratio, urine 2022 023 [facility], [address], [address], [place], [address], 3 09:10:33 HbA1c (hemoglobin A1c), blood 2022 023 [facility], [address], [address], [place], [address], 3 09:10:34 CMP, serum or plasma 2022 023 [facility], [address], [address], [place], [address], 3 09:10:34 vitamin B12, serum 2022 023 [facility], [address], [address], [place], [address], 3 09:10:35 Referral gynecologis t referral 2023 024 roxane Fortune MD, [address], [address], [place], [address], 4 08:22:42 diabetic ophthalmolo gy referral 2023 024 roxane Hester, [address], [address], [place], [address], 4 08:22:43 gynecologis t referral 2023 024 roxane Fortune MD, [address], [address], [place], [address], 4 08:10:50 diabetic ophthalmolo gy referral 2023 024 roxane Hester, [address], [address], [place], [address], 4 08:10:51 gynecologis t referral 2023 024 roxane Fortune MD, [address], [address], [place], [address], 4 17:44:51 diabetic ophthalmolo gy referral 2023 024 roxane Hester, [address], [address], [place], [address], 4 08:22:07 gynecologis t referral 2022 023 [email or web address] Darwin Fortune MD, [address] [facility], [facility] [address], [place], [address], 3 08:24:24 diabetic ophthalmolo gy referral 2022 023 jsheldrachel Hester, [address], [address], [place], [address], 3 08:24:25 gynecologis t referral 2022 023 roxane Fortune MD, [address], [place], [address], 3 08:23:02 diabetic ophthalmolo gy referral 2022 023 roxane Hester, [address], [address], [place], [address], 3 08:23:03 Procedures None recorded. Surgeries None recorded. Imaging CT, head, w/o contrast [address] [facility] Patient Access Centralized Scheduling, Centralized Scheduling, [address] [place], [address], 4 08:10:55 bone density [address] [facility] Centralized Scheduling, Centralized Scheduling, [address] [place], [address], 4 08:10:55 MAMMO, screening, digital, bilateral [address] [facility] Patient Access Centralized Scheduling, Centralized Scheduling, [address] [place], [address], 4 12:07:32 bone density 2022 023 roxane [facility] Patient Access Centralized Scheduling, Centralized Scheduling, [facility], [place], [address], 3 09:10:20 Medication Orders atorvastati n 40 mg tablet 2023 024 [facility], [facility] [place], [address], 4 13:41:07 ezetimibe 10 mg tablet 2023 024 [facility] [address], [place], [address], 4 13:40:59 Synjardy XR 12.5 mg-1,000 mg tablet, extended release 2023 024 [facility], [address], [place], [address], 4 13:40:59 Rybelsus 7 mg tablet 2023 024 [facility], [address], [place], [address], 4 13:41:00 solifenacin 10 mg tablet [address] [facility], [address], [place], [address], 4 13:41:02 carvedilol 25 mg tablet 2023 024 [facility], [facility] [place], [address], 4 13:40:58 atorvastati n 40 mg tablet 2023 024 [facility], [address] [place], [address], 4 18:37:49 ezetimibe 10 mg tablet [address]/[facility]2713, [address], [place], [address], 4 18:38:46 Synjardy XR 12.5 mg-1,000 mg tablet, extended release [address]/[facility]acy #2713, [address], [place], [address], 4 12:48:22 Rybelsus 7 mg tablet 2023 024 [facility], [address], [place], [address], 4 18:37:52 solifenacin 10 mg tablet 2023 024 [facility], [address], [place], [address], 4 18:37:56 carvedilol 25 mg tablet 2023 024 [facility], [facility] [place], [address], 4 18:37:49 atorvastati n 40 mg tablet 2023 024 [facility], [facility] [place], [address], 4 17:42:06 ezetimibe 10 mg tablet 2023 024 [facility], [address], [place], [address], 4 17:42:07 Synjardy XR 12.5 mg-1,000 mg tablet, extended release 2023 024 [facility], [address], [place], [address], 4 17:42:07 Rybelsus 3 mg tablet 2023 024 [address], [address], [place], [address], 4 18:19:05 Rybelsus 7 mg tablet 2023 024 [facility], [address], [place], [address], 4 17:42:07 solifenacin 10 mg tablet 2023 024 [facility], [address], [place], [address], 4 17:42:10 carvedilol 25 mg tablet 2023 024 [facility], [facility], [place], [address], 4 17:42:06 atorvastati n 40 mg tablet 2022 023 [facility], [address] [facility], [place], [address], 3 17:49:31 Rybelsus 14 mg tablet 2022 023 [address], [address], [place], [address], 4 17:34:14 Synjardy XR 12.5 mg-1,000 mg tablet, extended release 2022 023 [facility] #2713, [address] [facility] [address], [place], [address], 17:49:33 solifenacin 10 mg tablet 2022 023 [facility], [address], [place], [address], 17:49:39 carvedilol 25 mg tablet 2022 023 [facility], [address] [place] [address], [address], 17:49:32 Patient TargetsNo targets recorded. Patient Instructions Encounter Date Encounter Id Patient Instructions Last Modified By Organization Details Last Modified Time 03/25/2023 [id number] advised to lose weight Not available 03/25/2023 18:00:17 07/07/2023 [id number] advised to lose weight Not available 07/07/2023 17:49:27 Discussed and explained advance directives such as standard forms to the {{patient caregiv er patient and caregiver}}. Face to face discussion lasted for a duration of ___ minutes. Not available 07/07/2023 17:28:24 11/16/2023 [id number] advised to lose weight Not available 11/16/2023 17:42:00 03/02/2024 [id number] advised to lose weight Not available 03/02/2024 18:37:44 07/05/2024 [id number] advised to lose weight Not available 07/05/2024 13:40:51 Reason for Referral [employer] Referral for Sc reening for malignant neoplasm of cervix Referring Physician: Mark Mcgregor, Internal Medicine, Encounter Date: 03/25/2023 Diabetic Ophthalmology Refer ral for Type 2 diabetes mellitus without complication Referring Physician: Mark Mcgregor, Internal Medicine, Encounter Date: 03/25/2023 [employer] Referral for Sc reening for malignant neoplasm of cervix Referring Physician: Mark Mcgregor Internal Medicine, Encounter Date: 07/07/2023 Diabetic Ophthalmology Refer ral for Type 2 diabetes mellitus without complication Referring Physician: Gopal Singh, Encounter Date: 07/07/2023 Video Game Tester Referral for Sc reening for malignant neoplasm of cervix Referring Physician: Gopal Singh, Encounter Date: 11/16/2023 Diabetic Ophthalmology Refer ral for Type 2 diabetes mellitus without complication Referring Physician: Gopal Singh, Encounter Date: 11/16/2023 Video Game Tester Referral for Sc reening for malignant neoplasm of cervix Referring Physician: Gopal Singh, Encounter Date: 03/02/2024 Diabetic Ophthalmology Refer ral for Type 2 diabetes mellitus without complication Referring Physician: Gopal Singh, Encounter Date: 03/02/2024 Video Game Tester Referral for Sc reening for malignant neoplasm of cervix Referring Physician: Gopal Singh, Encounter Date: 07/05/2024 Diabetic Ophthalmology Refer ral for Type 2 diabetes mellitus without complication Referring Physician: Gopal Singh, Encounter Date: 07/05/2024 Results Created Date Observation Date Name Description Value Unit Range Abnormal Flag Note LastModifiedBy Organization Detail LastModifiedTime 04/01/2004/05/2023 LIPID PANEL , STAND RADHIKA cholesterol, total 177 mg/dL <200 normal Not Available [facility] [address] [place], [address], 04/05/2023 15:25:08 04/01/20 23 04/05/2023 LIPID PANEL , STAND RADHIKA HDL cholesterol 65 mg/dL > or = 50 normal Not Available [facility] [address] [place], [address], 04/05/2023 15:25:08 04/01/20 23 04/05/2023 LIPID PANEL , STAND RADHIKA triglyceride s 75 mg/dL <150 normal Not Available [facility] [address] [place], [address], 04/05/2023 15:25:08 04/01/20 23 04/05/2023 LIPID PANEL , STAND RADHIKA LDL-choleste rol 96 mg/dL _(higinio c) normal Refer ence range : <100 Yamila able range <100 mg/dL for prima ry preve ntion ; <70 mg/dL for patie nts with CHD or diabe tic patie nts with > or = 2 CHD risk facto rs. LDL-C is now calcu lated using the Luci n-Hop kins calcu latio n, which is a valid ated novel metho d provi krystyna oliveira accur acy than the Fried jose equat ion in the estim ation of LDL-C . Luci rhodes SS et al. HORACIO. 2013; 310(1 9): 2061- 2068 (http ://ed ucati on.ScrollMotion. com/f aq/FA Q164) Not Available [facility] [address], [place], [address], 04/05/2023 15:25:08 04/01/20 23 04/05/2023 LIPID PANEL , STAND RADHIKA chol/HDLC ratio 2.7 (calc ) <5.0 normal Not Available [facility] [address] [address], [place], [address], 04/05/2023 15:25:08 04/01/2004/05/2023 LIPID PANEL , STAND RADHIKA non HDL cholesterol 112 mg/dL _(higinio c) <130 normal For patie nts with diabe ada plus 1 major ASCVD risk facto r, treat ing to a non-H DL-C goal of <100 mg/dL (LDL- C of <70 mg/dL ) is norah dobson optio n. Not Available [facility] [address], [place], [address], 04/05/2023 15:25:08 06/15/20 23 04/05/2023 ALBUM IN, RANDO M URINE W/CRE ATINI NE creatinine, random urine 81 mg/dL 20-275 normal Not Available [address], [address], 04/05/2023 15:25:09 04/01/20 23 04/05/2023 ALBUM IN RANDO M URINE W/CRE ATINI NE albumin, urine 4.2 mg/dL see note: normal Refer ence Range : Refer ence Range Not estab lishe d Not Available [address], [address], 04/05/2023 15:25:04/01/2004/05/2023 ALBUM INGAYATRIO M URINE W/CRE ATINI NE albumin/crea tinine ratio, random urine 52 mcg/m g_cre at <30 high The ADA defin es abnor malit ies in album in excre tion as follo ws: Album inuri a Categ ory Resul t (mcg/ mg creat inine ) Di l to Mildl y incre ased <30 Moder ately incre ased 30-29 9 Sever cedric incre ased > OR = 300 The ADA recom mends that at least two of three speci mens colle cted withi n a 3-6 month perio d be abnor mal befor e consi mercy g a patie nt to be withi n a diagn ostic categ ory. Not Available [address], [address], 04/05/2023 15:25:04/01/2004/05/2023 HEMOG LOBIN OPATH Y EVALU ATION red blood cell count 4.78 miah on/uL 3.80-5 .10 Not Available [address], [address], 04/05/2023 15:25:09 04/01/20 23 04/05/2023 HEMOG LOBIN OPATH Y EVALU ATION hemoglobin 12.5 g/dL 11.7-1 5.5 Not Available [address] [address] [place], [address], 04/05/2023 15:25:04/01/2004/05/2023 HEMOG LOBIN OPATH Y EVALU ATION hematocrit 40.5 % 35.0-4 5.0 Not Available [address] [address] [place], [address], 04/05/2023 15:25:04/01/20 23 04/05/2023 HEMOG LOBIN OPATH Y EVALU ATION MCV 84.7 fL 80.0-1 00.0 Not Available [address] [address] [place], [address], 04/05/2023 15:25:04/01/2004/05/2023 HEMOG LOBIN OPATH Y EVALU ATION MCH 26.2 pg 27.0-3 3.0 low Not Available [address] [address] [place], [address], 04/05/2023 15:25:04/01/2004/05/2023 HEMOG LOBIN OPATH Y EVALU ATION RDW 14.2 % 11.0-1 5.0 Not Available [address] [address] [place], [address], 04/05/2023 15:25:04/01/2004/05/2023 HEMOG LOBIN OPATH Y EVALU ATION hemoglobin A 97.8 % >96.0 Not Available [address] [address] [place], [address], 04/05/2023 15:25:04/01/2004/05/2023 HEMOG LOBIN OPATH Y EVALU ATION hemoglobin F <1.0 % <2.0 Not Available [address] [address] [place], [address], 04/05/2023 15:25:04/01/20 23 04/05/2023 HEMOG LOBIN OPATH Y EVALU ATION hemoglobin A2 (quant) 2.2 % 2.2-3. 2 Not Available [address], [address], 04/05/2023 15:25:09 04/01/20 23 04/05/2023 HEMOG LOBIN OPATH Y EVALU ATION interpretati on Di l pheno type. Di l hemog lobin distr ibuti on, no HgS, HgC or other abnor mal hemog lobin obser sara. Not Available [address], [address], 04/05/2023 15:25:09 04/01/20 23 04/05/2023 COMPR EHENS JOVANNA METAB OLIC PANEL glucose 91 mg/dL 65-99 normal Fasti ng refer ence inter tiana Not Available [address], [address], 04/05/2023 15:25:10 04/01/20 23 04/05/2023 COMPR EHENS JOVANNA METAB OLIC PANEL urea nitrogen (BUN) 20 mg/dL 7-25 normal Not Available [address], [address], 04/05/2023 15:25:10 04/01/20 23 04/05/2023 COMPR EHENS JOVANNA METAB OLIC PANEL creatinine 0.92 mg/dL 0.50-1 .05 normal Not Available [address], [address], 04/05/2023 15:25:10 04/01/2004/05/2023 COMPR EHENS JOVANNA METAB OLIC PANEL eGFR 71 mL/mi n/1.7 3m2 > or = 60 normal The eGFR is based on the CKD-E PI 2020 equat ion. To calcu late the new eGFR from a previ ous Creat inine or Cysta brenda C resul t, go to https ://ww w.kid calvin.christie joyner/toni ofess ional s/ kdoqi /gfr% 5Fcal culat or Not Available [address], [address], 04/05/2023 15:25:10 04/01/20 23 04/05/2023 COMPR EHENS JOVANNA METAB OLIC PANEL BUN/creatini ne ratio NOT APPLIC ABLE (calc ) 6-22 Not Available [address], [address], 04/05/2023 15:25:10 04/01/20 23 04/05/2023 COMPR EHENS JOVANNA METAB OLIC PANEL sodium 139 mmol/ L 135-14 6 normal Not Available [address], [address], 04/05/2023 15:25:10 04/01/20 23 04/05/2023 COMPR EHENS JOVANNA METAB OLIC PANEL potassium 4.8 mmol/ L 3.5-5. 3 normal Not Available [address], [address], 04/05/2023 15:25:10 04/01/20 23 04/05/2023 COMPR EHENS JOAVNNA METAB OLIC PANEL chloride 103 mmol/ L 98-110 normal Not Available [address], [address], 04/05/2023 15:25:10 04/01/20 23 04/05/2023 COMPR EHENS JOVANNA METAB OLIC PANEL carbon dioxide 28 mmol/ L 20-32 normal Not Available [address], [address], 04/05/2023 15:25:10 04/01/20 23 04/05/2023 COMPR EHENS JOVANNA METAB OLIC PANEL calcium 10.1 mg/dL 8.6-10 .4 normal Not Available [address], [address], 04/05/2023 15:25:10 04/01/20 23 04/05/2023 COMPR EHENS JOVANNA METAB OLIC PANEL protein, total 6.8 g/dL 6.1-8. 1 normal Not Available [address], [address], 04/05/2023 15:25:10 04/01/20 23 04/05/2023 COMPR EHENS JOVANNA METAB OLIC PANEL albumin 4.2 g/dL 3.6-5. 1 normal Not Available [address], [address], 04/05/2023 15:25:10 04/01/20 23 04/05/2023 COMPR EHENS JOVANNA METAB OLIC PANEL globulin 2.6 g/dL_ (calc ) 1.9-3. 7 normal Not Available [address], [address], 04/05/2023 15:25:10 04/01/20 23 04/05/2023 COMPR EHENS JOVANNA METAB OLIC PANEL albumin/glob ulin ratio 1.6 (calc ) 1.0-2. 5 normal Not Available [address], [address], 04/05/2023 15:25:10 04/01/2004/05/2023 COMPR EHENS JOVANNA METAB OLIC PANEL bilirubin, total 0.3 mg/dL 0.2-1. 2 normal Not Available [address] [address] [place], [address], 04/05/2023 15:25:10 04/01/20 23 04/05/2023 COMPR EHENS JOVANNA METAB OLIC PANEL alkaline phosphatase 69 U/L 37-153 normal Not Available [address] [address] [place], [address], 04/05/2023 15:25:10 04/01/20 23 04/05/2023 COMPR EHENS JOVANNA METAB OLIC PANEL AST 11 U/L 10-35 normal Not Available [address], [address], 04/05/2023 15:25:10 04/01/20 23 04/05/2023 COMPR EHENS JOVANNA METAB OLIC PANEL ALT 10 U/L 6-29 normal Not Available [address], [address], 04/05/2023 15:25:10 04/01/2004/05/2023 CBC (H/H, RBC, INDIC ES, WBC, PLT) white blood cell count 3.9 thous and/u L 3.8-10 .8 normal Not Available [address], [address], 04/05/2023 15:25:11 04/01/20 23 04/05/2023 CBC (H/H, RBC, INDIC ES, WBC, PLT) red blood cell count 4.72 miah on/uL 3.80-5 .10 normal Not Available [address], [address], 04/05/2023 15:25:11 04/01/2004/05/2023 CBC (H/H, RBC, INDIC ES, WBC, PLT) hemoglobin 12.4 g/dL 11.7-1 5.5 normal Not Available [address], [address], 04/05/2023 15:25:11 04/01/2004/05/2023 CBC (H/H, RBC, INDIC ES, WBC, PLT) hematocrit 39.4 % 35.0-4 5.0 normal Not Available [address], [address], 04/05/2023 15:25:11 04/01/20 23 04/05/2023 CBC (H/H, RBC, INDIC ES, WBC, PLT) MCV 83.5 fL 80.0-1 00.0 normal Not Available [address], [address], 04/05/2023 15:25:11 04/01/20 23 04/05/2023 CBC (H/H, RBC, INDIC ES, WBC, PLT) MCH 26.3 pg 27.0-3 3.0 low Not Available [address], [address], 04/05/2023 15:25:11 04/01/2004/05/2023 CBC (H/H, RBC, INDIC ES, WBC, PLT) MCHC 31.5 g/dL 32.0-3 6.0 low Not Available [address], [address], 04/05/2023 15:25:11 04/01/2004/05/2023 CBC (H/H, RBC, INDIC ES, WBC, PLT) RDW 14.3 % 11.0-1 5.0 normal Not Available [address], [address], 04/05/2023 15:25:11 04/01/2004/05/2023 CBC (H/H, RBC, INDIC ES, WBC, PLT) platelet count 253 thous and/u L 140-40 0 normal Not Available [address], [address], 04/05/2023 15:25:11 04/01/2004/05/2023 CBC (H/H, RBC, INDIC ES, WBC, PLT) MPV 11.1 fL 7.5-12 .5 normal Not Available [address], [address], 04/05/2023 15:25:11 06/04/05/2023 VITAM IN B12 vitamin B12 298 pg/mL 200-11 00 normal Pleas e Note: Altho ugh the refer ence range for vitam in B12 is 200-1 100 pg/mL , it has been repor taylor that betwe en 5 and 10% of patie nts with value s betwe en 200 and 400 pg/mL may exper ience neuro psych iatri c and hemat ologi c abnor malit ies due to occul t B12 defic iency ; less than 1% of patie nts with value s above 400 pg/mL will have sympt oms. Not Available [facility] [address] [place], [address], 04/05/2023 15:25:11 04/01/2004/05/2023 HEMOG LOBIN A1C hemoglobin A1C 6.4 %_of_ total _HGB <5.7 high For someo ne witho ut known diabe ada, a hemog lobin A1c value betwe en 5.7% and 6.4% is consi stent with predi abete s and shoul d be confi rmed with a follo w-up test. For someo ne with known diabe ada, a value <7% indic ates that their diabe ada is well contr olled . A1c targe ts shoul d be indiv idual ized based on durat ion of diabe ada, age, comor bid condi tions , and other consi derat ions. This assay resul t is consi stent with an incre ased risk of diabe ada. Curre ntly, no conse nsus exist s regar ding use of hemog lobin A1c for diagn osis of diabe ada for child mike. Not Available [facility] [address] [place], [address], 04/05/2023 15:25:12 04/23/2004/24/2023 LIPID PANEL , STAND RADHIKA cholesterol, total 160 mg/dL <200 normal Not Available [facility] [address] [place], [address], 04/24/2023 12:31:18 04/23/20 23 04/24/2023 LIPID PANEL , STAND RADHIKA HDL cholesterol 59 mg/dL > or = 50 normal Not Available [address], [address], 04/24/2023 12:31:18 04/23/20 23 04/24/2023 LIPID PANEL , STAND RADHIKA triglyceride s 111 mg/dL <150 normal Not Available [address], [address], 04/24/2023 12:31:18 04/23/20 23 04/24/2023 LIPID PANEL , STAND RADHIKA LDL-choleste rol 80 mg/dL _(higinio c) normal Refer ence range : <100 Yamila able range <100 mg/dL for prima ry preve ntion ; <70 mg/dL for patie nts with CHD or diabe tic patie nts with > or = 2 CHD risk facto rs. LDL-C is now calcu lated using the Luci n-Hop kins calcu rupert n, which is a valid ated novel anthonyo d provi krystyna katharina r accur acy than the Fried jose equat ion in the estim ation of LDL-C . Luci rhodes SS et al. HORACIO. 2013; 310(1 9): 2061- 2068 (http ://ed ucati on.Qu Lexus South[employer]. com/f aq/FA Q164) Not Available [address], [address], 04/24/2023 12:31:18 04/23/20 23 04/24/2023 LIPID PANEL , STAND RADHIKA chol/HDLC ratio 2.7 (calc ) <5.0 normal Not Available [facility] [address], [address], 04/24/2023 12:31:18 04/23/20 23 04/24/2023 LIPID PANEL , STAND RADHIKA non HDL cholesterol 101 mg/dL _(higinio c) <130 normal For patie nts with diabe ada plus 1 major ASCVD risk facto r, treat ing to a non-H DL-C goal of <100 mg/dL (LDL- C of <70 mg/dL ) is norah ochoa n. Not Available [address] [address] [place], [address], 04/24/2023 12:31:18 04/23/20 23 04/24/2023 ALBUM IN, RANDO M URINE W/CRE ATINI NE creatinine, random urine 45 mg/dL 20-275 normal Not Available [address] [address] [place], [address], 04/24/2023 12:31:20 04/23/20 23 04/24/2023 ALBUM IN, RANDO M URINE W/CRE ATINI NE albumin, urine 2.2 mg/dL see note: normal Refer ence Range : Refer ence Range Not estab lishe d Not Available [address] [address] [address], [place], [address], 04/24/2023 12:31:20 04/23/20 23 04/24/2023 ALBUM IN, RANDO M URINE W/CRE ATINI NE albumin/crea tinine ratio, random urine 49 mcg/m g_cre at <30 high The ADA defin es abnor malit ies in album in excre tion as follo ws: Album inuri a Categ ory Resul t (mcg/ mg creat inine ) Di l to Mildl y incre ased <30 Moder ately incre ased 30-29 9 Sever cedric incre ased > OR = 300 The ADA recom mends that at least two of three speci mens colle cted withi n a 3-6 month perio d be abnor mal befor e consi mercy g a patie nt to be withi n a diagn ostic categ ory. Not Available [facility] [address] [address] [place], [address], 04/24/2023 12:31:20 04/23/20 23 04/24/2023 COMPR EHENS JOVANNA METAB OLIC PANEL glucose 132 mg/dL 65-99 high Fasti ng refer ence inter itana For someo ne witho ut known diabe ada, a gluco se value >125 mg/dL indic ates that they may have diabe ada and this shoul d be confi rmed with a follo w-up test. Not Available [facility] [address] [address] [place], [address], 04/24/2023 12:31:20 04/23/20 23 04/24/2023 COMPR EHENS JOVANNA METAB OLIC PANEL urea nitrogen (BUN) 17 mg/dL 7-25 normal Not Available [facility] [address], [address], 04/24/2023 12:31:20 04/23/20 23 04/24/2023 COMPR EHENS JOVANNA METAB OLIC PANEL creatinine 0.90 mg/dL 0.50-1 .05 normal Not Available [facility] [address] [address] [place], [address], 04/24/2023 12:31:20 04/23/20 23 04/24/2023 COMPR EHENS JOVANNA METAB OLIC PANEL eGFR 73 mL/mi n/1.7 3m2 > or = 60 normal The eGFR is based on the CKD-E PI 2020 equat ion. To calcu late the new eGFR from a previ ous Creat inine or Cysta tin C resul t, go to https ://jennifer simpson.[email or web address] joyner/[email or web address] lee s/ kdoqi /gfr% 5Fcal culat or Not Available [facility] [address] [address] [place], [address], 04/24/2023 12:31:20 04/23/20 23 04/24/2023 COMPR EHENS JOVANNA METAB OLIC PANEL BUN/creatini ne ratio NOT APPLIC ABLE (calc ) 6-22 Not Available [facility] [address] [address] [place], [address], 04/24/2023 12:31:20 04/23/20 23 04/24/2023 COMPR EHENS JOVANNA METAB OLIC PANEL sodium 135 mmol/ L 135-14 6 normal Not Available [address], [address], 04/24/2023 12:31:20 04/23/20 23 04/24/2023 COMPR EHENS JOVANNA METAB OLIC PANEL potassium 4.7 mmol/ L 3.5-5. 3 normal Not Available [address], [address], 04/24/2023 12:31:20 04/23/20 23 04/24/2023 COMPR EHENS JOVANNA METAB OLIC PANEL chloride 100 mmol/ L 98-110 normal Not Available [address], [address], 04/24/2023 12:31:20 04/23/20 23 04/24/2023 COMPR EHENS JOVANNA METAB OLIC PANEL carbon dioxide 28 mmol/ L 20-32 normal Not Available [address], [address], 04/24/2023 12:31:20 04/23/20 23 04/24/2023 COMPR EHENS JOVANNA METAB OLIC PANEL calcium 10.1 mg/dL 8.6-10 .4 normal Not Available [address], [address], 04/24/2023 12:31:20 04/23/20 23 04/24/2023 COMPR EHENS JOVANNA METAB OLIC PANEL protein, total 6.7 g/dL 6.1-8. 1 normal Not Available [address], [address], 04/24/2023 12:31:20 04/23/20 23 04/24/2023 COMPR EHENS JOVANNA METAB OLIC PANEL albumin 4.4 g/dL 3.6-5. 1 normal Not Available [address] [address] [place], [address], 04/24/2023 12:31:20 04/23/20 23 04/24/2023 COMPR EHENS JOVANNA METAB OLIC PANEL globulin 2.3 g/dL_ (calc ) 1.9-3. 7 normal Not Available [address], [address], 04/24/2023 12:31:20 04/23/20 23 04/24/2023 COMPR EHENS JOVANNA METAB OLIC PANEL albumin/glob ulin ratio 1.9 (calc ) 1.0-2. 5 normal Not Available [address], [address], 04/24/2023 12:31:20 04/23/20 23 04/24/2023 COMPR EHENS JOVANNA METAB OLIC PANEL bilirubin, total 0.4 mg/dL 0.2-1. 2 normal Not Available [address] [address] [place], [address], 04/24/2023 12:31:20 04/23/20 23 04/24/2023 COMPR EHENS JOVANNA METAB OLIC PANEL alkaline phosphatase 59 U/L 37-153 normal Not Available [facility] [address] [address] [place], [address], 04/24/2023 12:31:20 04/23/20 23 04/24/2023 COMPR EHENS JOVANNA METAB OLIC PANEL AST 9 U/L 10-35 low Not Available [address], [address], 04/24/2023 12:31:20 04/23/20 23 04/24/2023 COMPR EHENS JOVANNA METAB OLIC PANEL ALT 10 U/L 6-29 normal Not Available [address] [place], [address], 04/24/2023 12:31:20 04/23/20 23 04/24/2023 CBC (H/H, RBC, INDIC ES, WBC, PLT) white blood cell count 3.7 thous and/u L 3.8-10 .8 low Not Available [address], [address], 04/24/2023 12:31:21 04/23/20 23 04/24/2023 CBC (H/H, RBC, INDIC ES, WBC, PLT) red blood cell count 4.76 miah on/uL 3.80-5 .10 normal Not Available [address], [address], 04/24/2023 12:31:21 04/23/20 23 04/24/2023 CBC (H/H, RBC, INDIC ES, WBC, PLT) hemoglobin 12.8 g/dL 11.7-1 5.5 normal Not Available [address], [address], 04/24/2023 12:31:21 04/23/20 23 04/24/2023 CBC (H/H, RBC, INDIC ES, WBC, PLT) hematocrit 39.3 % 35.0-4 5.0 normal Not Available [address], [address], 04/24/2023 12:31:21 04/23/20 23 04/24/2023 CBC (H/H, RBC, INDIC ES, WBC, PLT) MCV 82.6 fL 80.0-1 00.0 normal Not Available [facility] [address], [address], 04/24/2023 12:31:21 04/23/20 23 04/24/2023 CBC (H/H, RBC, INDIC ES, WBC, PLT) MCH 26.9 pg 27.0-3 3.0 low Not Available [facility] [address], [address], 04/24/2023 12:31:21 04/23/20 23 04/24/2023 CBC (H/H, RBC, INDIC ES, WBC, PLT) MCHC 32.6 g/dL 32.0-3 6.0 normal Not Available [address] [address] [place], [address], 04/24/2023 12:31:21 04/23/20 23 04/24/2023 CBC (H/H, RBC, INDIC ES, WBC, PLT) RDW 14.0 % 11.0-1 5.0 normal Not Available [address], [address], 04/24/2023 12:31:21 04/23/20 23 04/24/2023 CBC (H/H, RBC, INDIC ES, WBC, PLT) platelet count 251 thous and/u L 140-40 0 normal Not Available [address], [address], 04/24/2023 12:31:21 04/23/20 23 04/24/2023 CBC (H/H, RBC, INDIC ES, WBC, PLT) MPV 11.1 fL 7.5-12 .5 normal Not Available [address], [address], 04/24/2023 12:31:21 04/23/2004/24/2023 VITAM IN B12 vitamin B12 286 pg/mL 200-11 00 normal Pleas e Note: Altho ugh the refer ence range for vitam in B12 is 200-1 100 pg/mL , it has been repor taylor that betwe en 5 and 10% of patie nts with value s betwe en 200 and 400 pg/mL may exper ience neuro psych iatri c and hemat ologi c abnor malit ies due to occul t B12 defic iency ; less than 1% of patie nts with value s above 400 pg/mL will have sympt oms. Not Available [address] [place], [address], 04/24/2023 12:31:21 04/23/20 23 04/24/2023 HEMOG LOBIN A1C hemoglobin A1C 6.2 %_of_ total _HGB <5.7 high For someo ne witho ut known diabe ada, a hemog lobin A1c value betwe en 5.7% and 6.4% is consi stent with predi abete s and shoul d be confi rmed with a follo w-up test. For someo ne with known diabe ada, a value <7% indic ates that their diabe ada is well contr olled . A1c targe ts shoul d be indiv idual ized based on durat ion of diabe ada, age, comor bid condi tions , and other consi derat ions. This assay resul t is consi stent with an incre ased risk of diabe ada. Curre ntly, no conse nsus exist s regar ding use of hemog lobin A1c for diagn osis of diabe ada for child mike. Your reque st to have a [employer] joshua copy [facility]. Queue d to: [phone] Not Available [facility] [address], [address], 04/24/2023 12:31:22 11/24/19 24 11/25/2023 LIPID PANEL , STAND RADHIKA cholesterol, total 151 mg/dL <200 normal Not Available [facility] [address], [address], 11/25/2023 13:48:59 11/24/19 24 11/25/2023 LIPID PANEL , STAND RADHIKA HDL cholesterol 69 mg/dL > or = 50 normal Not Available [facility] [address], [address], 11/25/2023 13:48:59 11/24/19 24 11/25/2023 LIPID PANEL , STAND RADHIKA triglyceride s 75 mg/dL <150 normal Not Available [facility] [address] [place], [address], 11/25/2023 13:48:59 11/24/19 24 11/25/2023 LIPID PANEL , STAND RADHIKA LDL-choleste rol 66 mg/dL _(higinio c) normal Refer ence range : <100 Yamila able range <100 mg/dL for prima ry preve ntion ; <70 mg/dL for patie nts with CHD or diabe tic patie nts with > or = 2 CHD risk facto rs. LDL-C is now calcu lated using the Luci n-Hop kins calcu latraymundo n, which is a valid ated novel anthonyo d piyushi krystyna posadas r accur acy than the Fried jose equat ion in the estim ation of LDL-C . Luci rhodes SS et al. HORACIO. 2013; 310(1 9): 2061- 2068 (http ://ed ucati on.Scroll[employer]. [employer]/f aq/FA Q164) Not Available [facility] [address] [address] [address], [place], [address], 11/25/2023 13:48:59 11/24/19 24 11/25/2023 LIPID PANEL , STAND RADHIKA chol/HDLC ratio 2.2 (calc ) <5.0 normal Not Available [facility] [address] [place], [address], 11/25/2023 13:48:59 11/24/19 24 11/25/2023 LIPID PANEL , STAND RADHIKA non HDL cholesterol 82 mg/dL _(higinio c) <130 normal For patie nts with diabe ada plus 1 major ASCVD risk facto r, treat ing to a non-H DL-C goal of <100 mg/dL (LDL- C of <70 mg/dL ) is norah dobson optio n. Not Available [facility] [address] [place], [address], 11/25/2023 13:48:59 11/24/19 24 11/25/2023 ALBUM IN, RANDO M URINE W/CRE ATINI NE creatinine, random urine 74 mg/dL 20-275 normal Not Available [address] [address] [place], [address], 11/25/2023 13:49:01 11/24/19 24 11/25/2023 ALBUM IN RANDO M URINE W/CRE ATINI NE albumin, urine 3.7 mg/dL see note: normal Refer ence Range : Refer ence Range Not estab lishe d Not Available [address] [address] [address], [place], [address], 11/25/2023 13:49:01 11/24/19 24 11/25/2023 ALBUM INGAYATRIO M URINE W/CRE ATINI NE albumin/crea tinine ratio, random urine 50 mcg/m g_cre at <30 high The ADA defin es abnor malit ies in album in excre tion as follo ws: Album inuri a Categ ory Resul t (mcg/ mg creat inine ) Di l to Mildl y incre ased <30 Moder ately incre ased 30-29 9 Sever cedric incre ased > OR = 300 The ADA recom mends that at least two of three speci mens colle cted withi n a 3-6 month perio d be abnor mal befor e consi mercy g a patie nt to be withi n a diagn ostic categ ory. Not Available [address], [address], 11/25/2023 13:49:01 11/24/19 24 11/25/2023 HIV 1/2 ANTIG EN/AN TIBOD Y,FOU RTH GENER ATION W/RFL HIV Ag/Ab, 4TH gen NON-RE ACTIVE non-re active normal HIV-1 antig en and HIV-1 /HIV- 2 antib odies were not detec taylor. There is no labor atory evide nce of HIV infec tion. PLEAS E NOTE: This infor caesar rhodes has been discl osed to you from recor ds whose confi denti ality may be prote cted by state law. If your state requi res such prote ction , then the state law prohi bits you from eugenie hennessyth er discl osure of the infor matio n witho ut the speci fic writt en conse nt of the perso n to whom it perta ins, or as other heard permi tted by law. A gener al autho rizat ion for the relea se of medic al or other infor matio n is NOT suffi cient for this purpo se. For addit ional infor matio n pleas e refer to http: //[facility] cat n.que stdia gnost ics.c om/fa q/FAQ 106 (This link is being provi ded for infor matio nal/ educa pedrito l purpo ses only. ) The perfo rmanc e of this assay has not been clini anyi valid ated in patie nts less than 2 years old. Not Available [facility] [address] [place], [address], 11/25/2023 13:49:02 11/24/19 24 11/25/2023 COMPR EHENS JOVANNA METAB OLIC PANEL glucose 116 mg/dL 65-99 high Fasti ng refer ence inter tiana For someo ne witho ut known diabe ada, a gluco se value betwe en 100 and 125 mg/dL is consi stent with predi abete s and shoul d be confi rmed with a follo w-up test. Not Available [facility] [address], [address], 11/25/2023 13:49:03 11/24/19 24 11/25/2023 COMPR EHENS JOVANNA METAB OLIC PANEL urea nitrogen (BUN) 13 mg/dL 7-25 normal Not Available [facility] [address], [address], 11/25/2023 13:49:03 11/24/19 24 11/25/2023 COMPR EHENS JOVANNA METAB OLIC PANEL creatinine 0.88 mg/dL 0.50-1 .05 normal Not Available [address] [address] [place], [address], 11/25/2023 13:49:03 11/24/19 24 11/25/2023 COMPR EHENS JOVANNA METAB OLIC PANEL eGFR 75 mL/mi n/1.7 3m2 > or = 60 normal Not Available [address], [address], 11/25/2023 13:49:03 11/24/19 24 11/25/2023 COMPR EHENS JOVANNA METAB OLIC PANEL BUN/creatini ne ratio SEE NOTE: (calc ) 6-22 Not Repor taylor: BUN and Creat inine are withi n refer ence range . Not Available [address], [address], 11/25/2023 13:49:03 11/24/19 24 11/25/2023 COMPR EHENS JOVANNA METAB OLIC PANEL sodium 137 mmol/ L 135-14 6 normal Not Available [address] [address] [place], [address], 11/25/2023 13:49:03 11/24/19 24 11/25/2023 COMPR EHENS JOVANNA METAB OLIC PANEL potassium 4.8 mmol/ L 3.5-5. 3 normal Not Available [address] [address] [place], [address], 11/25/2023 13:49:03 11/24/19 24 11/25/2023 COMPR EHENS JOVANNA METAB OLIC PANEL chloride 100 mmol/ L 98-110 normal Not Available [facility] [address] [address] [place], [address], 11/25/2023 13:49:03 11/24/19 24 11/25/2023 COMPR EHENS JOVANNA METAB OLIC PANEL carbon dioxide 31 mmol/ L 20-32 normal Not Available [address], [address], 11/25/2023 13:49:03 11/24/19 24 11/25/2023 COMPR EHENS JOVANNA METAB OLIC PANEL calcium 10.0 mg/dL 8.6-10 .4 normal Not Available [address], [address], 11/25/2023 13:49:03 11/24/19 24 11/25/2023 COMPR EHENS JOVANNA METAB OLIC PANEL protein, total 6.7 g/dL 6.1-8. 1 normal Not Available [address], [address], 11/25/2023 13:49:03 11/24/19 24 11/25/2023 COMPR EHENS JOVANNA METAB OLIC PANEL albumin 4.3 g/dL 3.6-5. 1 normal Not Available [address], [address], 11/25/2023 13:49:03 11/24/19 24 11/25/2023 COMPR EHENS JOVANNA METAB OLIC PANEL globulin 2.4 g/dL_ (calc ) 1.9-3. 7 normal Not Available [address], [address], 11/25/2023 13:49:03 11/24/19 24 11/25/2023 COMPR EHENS JOVANNA METAB OLIC PANEL albumin/glob ulin ratio 1.8 (calc ) 1.0-2. 5 normal Not Available [address], [address], 11/25/2023 13:49:03 11/24/19 24 11/25/2023 COMPR EHENS JOVANNA METAB OLIC PANEL bilirubin, total 0.4 mg/dL 0.2-1. 2 normal Not Available [address], [address], 11/25/2023 13:49:03 11/24/19 24 11/25/2023 COMPR EHENS JOVANNA METAB OLIC PANEL alkaline phosphatase 62 U/L 37-153 normal Not Available [facility] [address], [address], 11/25/2023 13:49:03 11/24/19 24 11/25/2023 COMPR EHENS JOVANNA METAB OLIC PANEL AST 13 U/L 10-35 normal Not Available [address], [address], 11/25/2023 13:49:03 11/24/19 24 11/25/2023 COMPR EHENS JOVANNA METAB OLIC PANEL ALT 16 U/L 6-29 normal Not Available [address], [address], 11/25/2023 13:49:03 11/24/19 24 11/25/2023 CBC (H/H, RBC, INDIC ES, WBC, PLT) white blood cell count 3.4 thous and/u L 3.8-10 .8 low Not Available [address], [address], 11/25/2023 13:49:04 11/24/19 24 11/25/2023 CBC (H/H, RBC, INDIC ES, WBC, PLT) red blood cell count 5.00 miah on/uL 3.80-5 .10 normal Not Available [address], [address], 11/25/2023 13:49:04 11/24/19 24 11/25/2023 CBC (H/H, RBC, INDIC ES, WBC, PLT) hemoglobin 13.0 g/dL 11.7-1 5.5 normal Not Available [address], [address], 11/25/2023 13:49:04 11/24/19 24 11/25/2023 CBC (H/H, RBC, INDIC ES, WBC, PLT) hematocrit 40.1 % 35.0-4 5.0 normal Not Available [address], [address], 11/25/2023 13:49:04 11/24/19 24 11/25/2023 CBC (H/H, RBC, INDIC ES, WBC, PLT) MCV 80.2 fL 80.0-1 00.0 normal Not Available [address], [address], 11/25/2023 13:49:04 11/24/19 24 11/25/2023 CBC (H/H, RBC, INDIC ES, WBC, PLT) MCH 26.0 pg 27.0-3 3.0 low Not Available [address], [address], 11/25/2023 13:49:04 11/24/19 24 11/25/2023 CBC (H/H, RBC, INDIC ES, WBC, PLT) MCHC 32.4 g/dL 32.0-3 6.0 normal Not Available [address], [address], 11/25/2023 13:49:04 11/24/19 24 11/25/2023 CBC (H/H, RBC, INDIC ES, WBC, PLT) RDW 13.6 % 11.0-1 5.0 normal Not Available [address], [address], 11/25/2023 13:49:04 11/24/19 24 11/25/2023 CBC (H/H, RBC, INDIC ES, WBC, PLT) platelet count 271 thous and/u L 140-40 0 normal Not Available [address], [address], 11/25/2023 13:49:04 11/24/19 24 11/25/2023 CBC (H/H, RBC, INDIC ES, WBC, PLT) MPV 11.3 fL 7.5-12 .5 normal Not Available [facility] [address] [place], [address], 11/25/2023 13:49:04 11/24/19 24 11/25/2023 VITAM IN B12 vitamin B12 351 pg/mL 200-11 00 normal Pleas e Note: Altho ugh the refer ence range for vitam in B12 is 200-1 100 pg/mL , it has been repor taylor that betwe en 5 and 10% of patie nts with value s betwe en 200 and 400 pg/mL may exper ience neuro psych iatri c and hemat ologi c abnor malit ies due to occul t B12 defic iency ; less than 1% of patie nts with value s above 400 pg/mL will have sympt oms. Not Available [facility] [address] [address], [place], [address], 11/25/2023 13:49:05 11/24/19 24 11/25/2023 HEMOG LOBIN A1C hemoglobin A1C 6.6 %_of_ total _HGB <5.7 high For someo ne witho ut known diabe ada, a hemog lobin A1c value of 6.5% or great er indic ates that they may have diabe ada and this shoul d be confi rmed with a follo w-up test. For someo ne with known diabe ada, a value <7% indic ates that their diabe ada is well contr olled and a value great er than or equal to 7% indic ates subop timal contr ol. A1c targe ts shoul d be indiv idual ized based on durat ion of diabe ada, age, comor bid condi tions , and other consi derat ions. Curre ntly, no conse nsus exist s regar ding use of hemog lobin A1c for diagn osis of diabe ada for child mike. HbA1c perfo rmed on Abbot t platf orm. Not Available [facility] [address] [place], [address], 11/25/2023 13:49:06 03/25/20 23 09/23/2022 bone densi ty No observ ation record ed. [address] Patient Access Centralized Scheduling Centralized Scheduling [address] [facility] , [place], [address], 07/07/2023 17:50:10 09/21/20 24 09/21/2024 MAMMO , scree adan, digit al, bilat eral No observ ation record ed. [address] [place], [address], 09/21/2024 19:46:12 09/21/20 24 09/21/2024 bone densi ty No observ ation record ed. [facility] [address] [place], [address], 09/21/2024 19:46:13 09/22/20 24 09/21/2024 CT, head, w/o contr ast No observ ation record ed. [address], [address], 10/01/2024 19:36:07 12/04/[address] ABD+p el W con [facility] [place] [address] Orderi ng Provid er: ELOISEBERNICE DIA [facility] [place] [facility] [address] [place] [id number] Examin ation: CT abdome n and pelvis with IV contra st. Access ion: [id number] Exam Date/T elma: 025 1:26 PM Indica tion: 59 female . Inguin al skin for breakd own. Evalua tion for infect ion, fourni ers Compar renzo: None Techni que: Comput ed tomogr aphy of the abdome n and pelvis perfor med follow ing uneven tful intrav enous admini strati on of 100 mL Isovue -[address] A dose loweri ng techni que was used for this proced ure, which may includ e, but is not limite d to, dose reduct ion techni que, automa taylor exposu re contro l, the use of iterat jovanna recons tructi on, and ALARA (As Low As Reason ably Achiev able) / Image Gently techni ques. CT Findin gs: LOWER CHEST Normal cardia c size. No perica rdial or pleura l effusi on. Clear lung bases . UPPER ABDOME N Liver and bile ducts: Normal size, contou r and enhanc ement. No focal lesion . Hepati c and portal venous system s are patent . No intra or extrah epatic biliar y tree dilata tion. Gallbl adder: Presen t and unrema rkable . No calcif ic cholel ithias is or inflam mation . Pancre as: Normal . Spleen : Normal . RETROP ERITON EUM Adrena ls: Normal . Kidney s: Left kidney is malrot ated but otherw ise both kidney s are normal in size contou r and enhanc ement. Left renal superi or pole 3.6 cm [place] k 1 benign simple cyst. No suspic ious focal lesion , collec ting system obstru ction or perine phric strand ing. Lymph nodes: No lympha denopa thy in the abdome n or pelvis . BOWEL AND PERITO NEUM Bowel: Normal in calibe r and wall thickn ess. Normal noninf lamed append ix. Sigmoi d colon divert iculos is withou t divert iculit is Free air or fluid: None. VASCUL ATURE Minima l abdomi nal aortic athero sclero sis. No abdomi nal aortic aneury sm. Mesent mary jo and branch vessel s are patent . There is medium and small vessel arteri al calcin osis includ ing the viscer al branch es, spleni c and hepati c arteri es, and renal arteri es. Bilate ral dual renal arteri es with small access ory lower pole branch es arisin g at a few centim eters inferi daren from the abdomi nal aorta bilate rally. PELVIS Atroph ic the anteve rted uterus . Nonspe cific fronta l calcif icatio ns may repres ent a small partia lly calcif ied fibroi d. Adnexa are within normal limits . No pelvic mass. Unrema rkable thin-w alled urinar y bladde r. BONES/ SOFT TISSUE S No signif icant muscul oskele rob findin g. Abdomi nal wall pannus unrema rkable withou t strand ing. Bilate ral inguin al region s appear unrema rkable . Right inguin al crease s deeper , entire ly nonspe cific. There is no septat ed infect ious/i nflamm atory strand ing, fluid collec tion or absces s. The perine um and ischio rectal fossae are unrema rkable . Multil evel mild disc and endpla te degene rative change , most promin ent at L5-S1. No concer adan osteol ytic or blasti c lesion . Impres mike: 1. No acute intra- abdomi nal pelvic proces s, findin gs 2. Incide ntal findin g left renal malrot ation with the upper pole 3.6 cm [place] k 1 benign simple cyst. No follow -up indica taylor. 3. Unrema rkable CT imagin g appear ance of the abdomi nal pannus , bilate ral inguin al region s, perine um and ischio rectal fossae , withou t inflam matory change . 4. Other noneme rgent, incide ntal, and potent ial chroni c findin gs as discus sed in the report body above. Ordere d By: ELOISE DIA Electr onical ly Signed By: Lexy Davis MD on 025 2:18 PM Interp reted By: Lexy Davis MD, 025 1:[address], [address], 12/11/2024 00:06:23 Result Notes None recorded. Problems Name Problem SNOMED Code Status Onset Date Resolution Date Notes Provider Name and Address Organization Details Recorded Time Mammography abnormal 727795222 Active 2015 Not Available [facility] 10/18/202 3 19:51:38 Benign hypertension 58037257 Active Not Available [facility] 3 19:51:38 Hyperlipidemi a 91183266 Active Not Available [facility] 3 19:51:38 Morbid obesity 255518311 Active Not Available [facility] 3 19:51:38 Diabetes mellitus 46848238 Active Not Available [facility] 3 19:51:38 Type 2 diabetes mellitus without complication 793113046 Active 2022 Not Available [facility] 3 19:51:38 Diabetic peripheral neuropathy 023882573 Active 2022 Not Available [facility] 3 19:51:38 Essential hypertension 90770344 Active 2022 Not Available [facility] 3 19:51:38 Overactive urinary bladder 178239409 Active 2022 Not Available [facility] 3 19:51:38 Osteopenia 989499937 Active 2022 Not Available [facility] 3 19:51:38 Acute stress disorder 27366663 Active 2022 Not Available [facility] 3 19:51:38 Blind left eye 689798034 Active 2022 Not Available [facility] 3 19:51:38 Problem Notes None recorded. Procedures Surgical History Date Name Laterality Status Provider Name and Address Organization Details Recorded Time 3 procedure on eyelid completed Elvia Ruiz [facility] 07/07/2023 17:07:22 3 Eye Surgery completed Beryl Phipps [facility] 03/25/2023 17:25:36 2 Most Recent Bone Density completed Beryl Desire [facility] 03/25/2023 18:11:49 2 Date of Last Colonoscopy completed Beryl Desire [facility] 07/15/2022 15:31:22 2 Date of Last Mammogram completed Mark Mcgregor MD [address] [place] [address] [address], [place], [address], [facility] 12/10/2021 10:21:05 1 Diabetic Foot Exam completed Mark Mcgregor MD [address], [place], [address], [facility] 06/11/2021 11:17:24 0 Diabetic Foot Exam completed Mark Mcgregor MD [address], [place], [address], [facility] 02/29/2020 12:20:38 9 Cataract Surgery completed Mark Mcgregor MD [address], [place], [address], [facility] 11/07/2019 15:25:18 7 Date of Last Pap Smear completed Eva Gisele [facility] 07/29/2017 10:19:53 procedure on eye completed Mark Mcgregor MD [address], [place], [address], [facility] 11/07/2019 15:23:12 Laparoscopy completed Mark Mcgregor MD [address], [place], [address], [facility] 11/07/2019 15:23:56 procedure on skin completed Mark Mcgregor MD [address], [place], [address], [facility] 11/07/2019 15:24:24 Imaging Results Imaging Date Name Status LastModified by Organiz ation Details LastModified Time 09/23/2022 bone density completed [address] Patient Access Centralized Scheduling Centralized Scheduling [address] [facility] [place], [address], 07/07/2023 17:50:10 09/21/2024 MAMMO, screening, digital, bilateral completed [place] [address] [place], [address], 09/21/2024 19:46:12 09/21/[address] [facility] [address] [place], [address], 09/21/2024 19:46:13 09/21/2024 CT, head, w/o contrast completed [address], [place], [address], 10/01/2024 19:36:07 12/04/2024 CT ABD+pel W con completed [address], [place], [address], 12/11/2024 00:06:23 Procedure Notes None recorded. Medical Equipment None Reported. Allergies Allergen ID Allergen Name Allergen Category Reaction Reaction Severity Criticality Documentation Date Start Date Code Code System Note Provider Name and Address Organization Details Recorded Time 6443 lisinopri l medicatio n Not available Not available Not available 09/22/2017 57924 RxNorm --> cough Mark Mcgregor MD [address], [place], [address], [facility] 7 21:53:16 7721 bromocrip luz medicatio n nausea moderate Not available 11/08/2018 1760 RxNorm HUDSON TATUM APN [address], [place], [address], [facility] 9 12:44:47 Medications Name Sig Start Date Stop Date Status Note LastModified by Organization Details LastModified Time Prescript ion - Prior Authoriza tion Request 08/10 completed Not Available Not Available Not Available latanopro st 0.005 % eye drops INSTILL 1 DROP INTO LEFT EYE NIGHTLY 02/28 completed Not Available Not Available Not Available fluconazo le 100 mg tablet Take 1 tablet every other day by oral route. 12/01 completed -- end of course Not Available Not Available Not Available atorvasta tin 40 mg tablet TAKE 1 TABLET BY MOUTH EVERY DAY active Not Available Not Available No t Available carvedilo l 25 mg tablet TAKE 1 TABLET BY MOUTH EVERY 12 HOURS active Not Available Not Available No t Available doxycycli ne hyclate 100 mg capsule TAKE 1 CAPSULE BY MOUTH TWICE DAILY active Not Available Not Available No t Available atorvasta tin 20 mg tablet TK 1 T PO QD 02/07 completed Not Available Not Available Not Available carvedilo l 12.5 mg tablet 1.5 tabs every 12 hours 11/12 completed -- increase d to 25 mg q12. Not Available Not Available Not Available cetirizin e 10 mg tablet 11/08 completed Not Available Not Available Not Available azithromy leticia 250 mg tablet TAKE 2 TABLETS (500 MG) BY ORAL ROUTE ONCE DAILY FOR 1 DAY THEN 1 TABLET (250 MG) BY ORAL ROUTE ONCE DAILY FOR 4 DAYS 10/09 completed Not Available Not Available Not Available fluconazo le 150 mg tablet TAKE 1 TABLET BY MOUTH EVERY OTHER DAY active Not Available Not Available No t Available benzonata te 200 mg capsule 1 pill once, up to 3 times day as needed; can cause drowsine ss 2023 active Not Available Not Available Not Avai lable Coreg 6.25 mg tablet Take 1 tablet every 12 hours by oral route. 09/30 completed -- increase d to 12.5 mg q12. Not Available Not Available Not Available hydrocodo ne 5 mg-acetam inophen 325 mg tablet TAKE 1 TABLET BY MOUTH EVERY 6 HOURS NEEDED DO NOT EXCEED 4 GRAM OF ACETAMIN OPHEN IN A DAY active Not Available Not Available No t Available fluconazo le 200 mg tablet Take 1 tablet every day by oral route. 06/27 completed Not Available Not Available Not Available glipizide ER 10 mg tablet, extended release 24 hr 02/11 completed Not Available Not Available Not Available sucralfat e 1 gram tablet Take 1 tablet 4 times a day by oral route. 06/27 completed Not Available Not Available Not Available phenazopy ridine 200 mg tablet Take 1 tablet 3 times a day by oral route. 06/08 completed Not Available Not Available Not Available lisinopri l 20 mg tablet 04/02 completed -- currentl y on Lisinopr il 40 mg qd Not Available Not Available Not Available clotrimaz ole 1 % vaginal cream APPLY 1 APPLICAT ORFUL VAGINALL Y AT BEDTIME active Not Available Not Available No t Available acetamino phen 300 mg-codein e 15 mg tablet 09/22 completed Not Available Not Available Not Available sulfameth oxazole 800 mg-trimet hoprim 160 mg tablet Take 1 tablet every 12 hours by oral route. 12/01 completed Not Available Not Available Not Available omeprazol e 40 mg capsule,d elayed release TAKE 1 CAPSULE BY MOUTH EVERY DAY IN THE MORNING active Not Available Not Available No t Available aspirin 81 mg tablet,de layed release TAKE 1 TABLET BY MOUTH DAILY AT DINNER active Not Available Not Available No t Available tramadol 50 mg tablet 1 tab once up to every 12 hours; can cause drowsine ss 11/07 completed Not Available Not Available Not Available spironola ctone 25 mg tablet TAKE ONE TABLET BY MOUTH ONCE DAILY 06/08 completed -- edema resolved . Not Available Not Available Not Available ketorolac 0.5 % eye drops 11/07 completed Not Available Not Available Not Available Azopt 1 % eye drops,sudhir pension 11/28 completed Not Available Not Available Not Available citalopra m 20 mg tablet 1 tab taken between 4 - 6 pm daily 03/25 completed Not Available Not Available Not Available prednisol one acetate 1 % eye drops,sudhir pension SHAKE LIQUID AND INSTILL 1 DROP IN LEFT EYE EVERY 4 TO 6 HOURS NEEDED 11/19 completed Not Available Not Available Not Available desonide 0.05 % topical ointment 11/28 completed Not Available Not Available Not Available baclofen 10 mg tablet TAKE 1 TABLET BY MOUTH THREE TIMES DAILY NEEDED (CAN CAUSE DROWSINE SS) 12/01 completed Not Available Not Available Not Available amlodipin e 10 mg tablet Take 1 tablet every day by oral route for 30 days. 06/08 completed -- changed to Edarby 80 mg qd Not Available Not Available Not Available benzonata te 100 mg capsule Take 1 capsule 3 times a day by oral route. 11/08 completed Not Available Not Available Not Available cephalexi n 500 mg capsule 02/07 completed Not Available Not Available Not Available erythromy leticia 5 mg/gram (0.5 %) eye ointment APPLY TO LEFT EYE 2 (TWO) TIMES A DAY NEEDED FOR MUCOUS DISCHARG E OR CRUSTING active Not Available Not Available No t Available oseltamiv ir 75 mg capsule Take 1 capsule twice a day by oral route. 03/09 completed Not Available Not Available Not Available glimepiri de 4 mg tablet Take 1 tablet(s ) every day by oral route. 11/08 completed Not Available Not Available Not Available polymyxin B sulfate 10,000 unit-trim ethoprim 1 mg/mL eye drops 11/07 completed Not Available Not Available Not Available telmisart an 80 mg tablet TAKE 1 TABLET DAILY 03/25 completed -- d/c'd due to hypotens ion Not Available Not Available Not Available hydrochlo rothiazid e 12.5 mg capsule 02/11 completed - duplicat e Not Available Not Available Not Available dorzolami de 22.3 mg-timolo l 6.8 mg/mL eye drops 02/07 completed Not Available Not Available Not Available codeine 10 mg-guaife nesin 100 mg/5 mL oral liquid 10 ml once, up to 3 times a day as needed; can cause drowsine ss 03/25 completed Not Available Not Available Not Available clobetaso l 0.05 % topical ointment APPLY TO AFFECTED AREA TWICE A DAY active Not Available Not Available No t Available bromocrip luz 2.5 mg tablet half tab every AM x 7d; then 1 tab every AM x 7d; then 1.5 tabs daily thereaft er 11/08 completed Not Available Not Available Not Available atropine 1 % eye drops 06/27 completed Not Available Not Available Not Available lisinopri l 40 mg tablet 04/23 completed Not Available Not Available Not Available ondansetr on 4 mg disintegr ating tablet 03/25 completed Not Available Not Available Not Available fluticaso ne propionat e 50 mcg/actua tion nasal spray,sudhir pension SHAKE LIQUID AND USE 2 SPRAYS IN EACH NOSTRIL EVERY DAY active Not Available Not Available No t Available metformin ER 500 mg tablet,ex tended release 24 hr TAKE 2 TABLETS BY MOUTH TWICE A DAY active Not Available Not Available No t Available diazepam 5 mg tablet 02/07 completed Not Available Not Available Not Available amoxicill in 875 mg-potass ium clavulana te 125 mg tablet Take 1 tablet every 12 hours by oral route. 01/20 completed Not Available Not Available Not Available oxycodone 5 mg tablet 03/25 completed Not Available Not Available Not Available Pneumovax -23 25 mcg/0.5 mL injection syringe 09/22 completed Not Available Not Available Not Available ezetimibe 10 mg tablet TAKE 1 TABLET BY MOUTH EVERY DAY active Not Available Not Available No t Available Glipizide XL 10 mg tablet,ex tended release Take 1 tablet every day by oral route for 30 days. 04/02 completed Diabetes issued by other doctor Not Available Not Available Not Available nitrofura ntoin monohydra te/macroc rystals 100 mg capsule 04/23 completed Not Available Not Available Not Available solifenac in 10 mg tablet TAKE 1 TABLET BY MOUTH EVERY DAY IN THE EVENING active Not Available Not Available No t Available Boostrix Tdap 2.5 Lf unit-8 mcg-5 Lf/0.5 mL intramusc ular syringe 09/22 completed Not Available Not Available Not Available hydrochlo rothiazid e 12.5 mg tablet Take 1 tablet every day by oral route. 04/23 completed htnissue d by other doctor Not Available Not Available Not Available levocetir izine 5 mg tablet 1 tab at 4 pm 08/22 completed Not Available Not Available Not Available Mucinex 1,200 mg tablet, extended release Take 1 tablet every 12 hours by oral route. 11/19 completed Not Available Not Available Not Available Combigan 0.2 %-0.5 % eye drops 11/28 completed Not Available Not Available Not Available Humalog Mix 75-25 KwikPen U-100 insulin 100 unit/mL subcutane ous pen 04/23 completed Not Available Not Available Not Available Humalog KwikPen (U-100) Insulin 100 unit/mL subcutane ous Inject 70 units twice a day by subcutan eous route for 91 days. 03/09 completed -- change to Humalog 200 Not Available Not Available Not Available BD Ultra-Fin e Emerald Pen Needle 32 gauge x 32 USE ONE PEN NEEDLE ONCE DAILY active Not Available Not Available No t Available Edarbi 80 mg tablet TAKE 1 TABLET BY MOUTH EVERY DAY 06/27 completed Not Available Not Available Not Available Bydureon 2 mg subcutane ous extended release suspensio n Inject 1 mg every week by subcutan eous route for 91 days. 05/15 completed Diabetes Stop byetta Not Available Not Available Not Available dorzolami de-timolo l (PF) 2 %-0.5 % eye drops in a dropperet te INSTILL 1 DROP INTO RIGHT EYE TWICE A DAY active Not Available Not Available No t Available Myrbetriq 25 mg tablet,ex tended release Take 1 tablet every day by oral route. 10/21 completed -- D/c b/c of increasi ng BP Not Available Not Available Not Available Bydureon 2 mg/0.65 mL subcutane ous pen injector Inject 1 injector every week by subcutan eous route for 90 days. 08/24 completed Not Available Not Available Not Available Invokamet 150 mg-1,000 mg tablet TAKE 1 TABLET BY MOUTH TWICE DAILY 2021 active Not Available Not Available Not Avai lable Toujeo SoloStar U-300 Insulin 300 unit/mL (1.5 mL) subcutane ous pen INJECT 25 UNITS UNDER THE SKIN DAILY (DOSE INCREASE ) active Not Available Not Available No t Available Humalog KwikPen U-200 Insulin 200 unit/mL (3 mL) subcutane ous Inject 10 units 3 times a day by subcutan eous route with meals for 91 days. 12/01 completed -- changed to Toujeo Not Available Not Available Not Available Synjardy 12.5 mg-1,000 mg tablet 1 tab q12 04/22 completed Not Available Not Available Not Available Tresiba FlexTouch U-200 insulin 200 unit/mL (3 mL) subcutane ous pen INJECT 25 UNITS SUBCUTAN EOUSLY EVERY DAY IN THE MORNING. active Not Available Not Available No t Available Afrezza 4 unit (60)/8 unit (60)/12 unit (60) cartridge with inhaler INHALE 4 UNITS BY MOUTH THREE TIMES DAILY WITH MEALS 12/18 completed Not Available Not Available Not Available Synjardy XR 12.5 mg-1,000 mg tablet, extended release TAKE 1 TABLET TWICE A DAY BY ORAL ROUTE FOR 90 DAYS. active Not Available Not Available No t Available Afrezza 12 unit cartridge with inhaler INHALE 12 UNITS BY MOUTH THREE TIMES DAILY DIRECTED active Not Available Not Available No t Available Fluzone High-Dose (PF) 180 mcg/0.5 mL intramusc ular syringe 09/22 completed Not Available Not Available Not Available Shingrix (PF) 50 mcg/0.5 mL intramusc ular suspensio n, kit 11/08 completed Not Available Not Available Not Available Bydureon BCise 2 mg/0.85 mL subcutane ous auto-inje ctor 03/11 completed -- not covered Not Available Not Available Not Available Fluzone Quad (P F) 60 mcg(15 mcgx4)/0. 5 mL intramusc ular syringe 11/08 completed Not Available Not Available Not Available Flucelvax Quad (PF) 60 mcg (15 mcg x 4)/0.5 mL IM syringe INJECT 0.5ML INTRAMUS CULARLY ONCE 11/07 completed Not Available Not Available Not Available Rybelsus 14 mg tablet Take 1 tablet every day by oral route in the morning for 90 days. 11/16 completed -- n/v; pt wants to go back to the 7 mg to decrease nausea Not Available Not Available Not Available Rybelsus 7 mg tablet TAKE 1 TABLET BY MOUTH ONCE DAILY WITH 4 OUNCES OF FLUID ON AN EMPTY STOMACH active Not Available Not Available No t Available Rybelsus 3 mg tablet 1 tab taken w/ 4 fl oz of fluids on empty stomach 03/02 completed -- starting on 7 mg now Not Available Not Available Not Available FreeStyle Janes 2 Sensor kit USE TO CHECK BLOOD SUGARS, CHANGE EVERY 14 DAYS active Not Available Not Available No t Available FreeStyle Janes 2 [place] active Not Available Not Available Not Available Fluzone Quad (PF) 60 mcg (15 mcg x 4)/0.5 mL IM syringe PHARMACI ST ADMINIST ERED IMMUNIZA TION ADMINIST ERED AT TIME OF DISPENSI NG 08/22 completed Not Available Not Available Not Available Flowflex COVID-19 Antigen Home Test kit 08/10 completed Not Available Not Available Not Available Paxlovid 300 mg (150 mg x 2)-100 mg tablets in a dose pack TAKE 3 TABLETS BY MOUTH TWICE A DAY FOR 5 DAYS PER PACKAGE INSTRUCT IONS 12/24 completed Not Available Not Available Not Available Mounjaro 2.5 mg/0.5 mL subcutane ous pen injector START: 2.5 MG UNDER THE SKIN ONCE A WEEK [id number], THEN 5 MG ONCE A WEEK, THEN MAY INCR. BY 2.5 MG/PER WEEK NO MORE FREQUENT LY THAN EVERY 4 WEEKS MAX: 15 MG/WK active Not Available Not Available No t Available Vitals Date Recorded Body height Body mass index (BMI) Body weight Respiratory rate Body temperature Heart rate Systolic blood pressure Diastolic blood pressure Provider Name and Address Organization Details Last Updated DateTime 3 182.88 cm 36.2 kg/m2 764185. 16 g 16 /min 97.2 [degF] 78 /min 137 mm[Hg] 83 mm[Hg] [facility] 3 17:24:12 Date Recorded Body height Heart rate Respiratory rate Body temperature Body mass index (BMI) Body weight Systolic blood pressure Diastolic blood pressure Provider Name and Address Organization Details Last Updated DateTime 3 182.88 cm 83 /min 16 /min 97.3 [degF] 35.7 kg/m2 715114. 79 g 117 mm[Hg] 77 mm[Hg] Elvia Ruiz [facility] 3 17:06:03 Date Recorded Body height Heart rate Respiratory rate Body temperature Body mass index (BMI) Body weight Systolic blood pressure Diastolic blood pressure Provider Name and Address Organization Details Last Updated DateTime 4 182.88 cm 83 /min 16 /min 97.2 [degF] 37.3 kg/m2 267571. 9 g 138 mm[Hg] 82 mm[Hg[facility] 16:[facility]28 Date Recorded Body height Heart rate Respiratory rate Body temperature Body mass index (BMI) Body weight Systolic blood pressure Diastolic blood pressure Provider Name and Address Organization Details Last Updated DateTime 4 182.88 cm 71 /min 16 /min 97.5 [degF] 38.1 kg/m2 681307. 46 g 137 mm[Hg] 82 mm[Hg] [facility] 17:42:04 Date Recorded Body height Heart rate Respiratory rate Body temperature Body mass index (BMI) Body weight Systolic blood pressure Diastolic blood pressure Provider Name and Address Organization Details Last Updated DateTime 4 182.88 cm 68 /min 16 /min 97.4 [degF] 38.1 kg/m2 126689. 46 g 124 mm[Hg] 80 mm[Hg] Beryl Phipps [facility] 4 12:40:26 Social History Question Answer Notes LastModified by Organizat ion Details LastModified Time Tobacco Smoking Status Never Smoker Ines anguiano [facility] 02/11/2016 22:36:44 Do You Have An Advance Directive? No Information not available 11/16/2023 What Is Your Level Of Alcohol Consumption? Occasional Wine Information not available 03/24/2019 What Is Your Level Of Caffeine Consumption? Moderate 1-2 Cups Coffee [email or web address] Information not available 11/16/2023 How Much Tobacco Do You Chew? None Information not available 03/24/2019 What Is Your Code Status? Full Code [email or web address] Information not available 11/16/2023 In The 14 Days Before Symptom Onset, Have You Had Close Contact With A Laboratory-confir med COVID-19 While That Case Was Ill? No [email or web address] Information not available 11/16/2023 In The 14 Days Before Symptom Onset, Have You Had Close Contact With A Person Who Is Under Investigation For COVID-19 While That Person Was Ill? No [email or web address] Information not available 11/16/2023 Have You Been To An Area Known To Be High Risk For COVID-19? No [email or web address] Information not available 11/16/2023 What Type Of Diet Are You Following? REGULAR [email or web address] Information not available 11/16/2023 Which Illicit Or Recreational Drugs Have You Used? None Information not available 11/07/2019 Do You Or Have You Ever Used E-cigarettes Or Vape? 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 07/05/2024 [email or web address] Information not available 07/05/2024 Do You Or Have You Ever Used Smokeless Tobacco? Never Used Smokeless Tobacco [email or web address] Information not available 11/16/2023 How Much Tobacco Do You Smoke? No Information not available 03/24/2019 Do You Use Any Illicit Or Recreational Drugs? No [email or web address] Information not available 11/16/2023 How Many Years Have You Smoked Tobacco? 0 [email or web address] Information not available 11/16/2023 Do You Or Have You Ever Used Any Other Forms Of Tobacco Or Nicotine? No [email or web address] Information not available 11/16/2023 Sex: Unknown Functional Status Question Answer Note LastModified by Organization D etails LastModified Time What is your exercise level? None Information not available 11/16/2023 Mental Status None recorded. Family History Relationship Description Onset Age of this Age Resolved Age Notes LastModified by Organization Details LastModified Time Mother Malignant tumor of colon 40 -- dx'd at 40 [email or web address] Not available 11/16/2023 16:01:36 Mother Diabetes mellitus [email or web address] Not available 2015 22:36:39 Mother Coronary arterioscler osis -- had cardia c stent in her mid 60s [email or web address] Not available 11/16/2023 16:01:36 Father Diabetes mellitus Not available 2019 15:26:37 Father Congestive heart failure [email or web address] Not available 11/16 16:01:36 Paternal Grandfather Diabetes mellitus Not available 2019 15:26:42 Paternal Grandfather Malignant tumor of lung (heavy smoker ) -- dx'd in his 70s [email or web address] Not available 11/16/2023 16:01:36 Maternal Uncle Malignant tumor of colon -- w/ colon cancer in his 60s [email or web address] Not available 11/16/2023 16:01:36 Paternal Aunt Malignant tumor of lung (heavy smoker ) -- dx'd in her early 40s [email or web address] Not available 11/16/2023 16:01:36 Paternal Uncle Malignant tumor of lung (heavy smoker ) -- dx'd in his early 50s [email or web address] Not available 11/16/2023 16:01:36 Paternal Grandmother Malignant tumor of pharynx (heavy smoker ) -- dx'd in her early 70s [email or web address] Not available 11/16/2023 16:01:36 Maternal Aunt Malignant tumor of breast -- dx'd in her late 50s. [email or web address] Not available 11/16/2023 16:01:36 Medical History Condition Response Coronary Artery Disease N Other N Gout N Kidney Stones N Blood Diseases N Hyperthyroidism N Breast Cancer N Blood Transfusion N COPD N Depression N Lung Disease N Hypothyroidism N Defects or Inherited Disease N Developmental or Behavioral Disorders N Breast Problem N Difficulty Swallowing N Anesthesia Complications N Meniere's disease N Anxiety Disorder N Muscle, Joint, or Bone Problems N Obesity N Vision or Eye Problems N Arthritis N Polyps N Infertility N Mental Disorder N Cancer N Varicosities N Stroke N Endometriosis N Bladder or Kidney Problems N High Cholesterol N Liver Disease N Fibromyalgia N Headaches N Kidney Disease N Allergies/Hayfever N Heart Problems N Ear or Hearing Problems N Hospitalizations N Thyroid Problems N GI Problems N ADD/ADHD N Skin Problems N Eating Disorder N Anemia N MRSA exposure N Constipation N Mental Illness N Ovarian Cancer N Diabetes N Bedwetting N Seizures/Epilepsy N Tuberculosis N AIDS/HIV N Congestive Heart Failure (CHF) N Eczema N Diverticulitis N Abuse/Domestic Violence N Asthma N Reflux/GERD N Hepatitis N Heart Disease N Pulmonary Embolism N Pre-Eclampsia N Hypertension N Chronic Ear Infections N Osteoporosis N Chicken Pox N Autism Spectrum Disorder (ASD) N Thrombophilias N Gynecological History Statement/Question Response Date of Last Pap Smear 07/18/2017 Date of Last Mammogram 12/10/2021 Date of Last Colonoscopy 07/14/2022 Most Recent Bone Density 09/23/2022 Obstetrics History GPAL:G 0 P 0 0 0 0 Immunizations Vaccine Type Date Status Note Provider Miguel e and Address Organization Details Recorded Time zoster recombinant 8 completed Lila anguiano [facility] 11/16/2023 16:01:40 Influenza, split virus, quadrivalent, PF 8 completed Lilaadam anguiano [facility] 11/16/2023 16:01:40 zoster recombinant 8 completed Lila anguiano [facility] 11/16/2023 16:01:40 Influenza, split virus, trivalent, preservative 9 completed Mark Mcgregor MD [address] [place] [address] [address], [place], [address], [facility] 08/09/2023 00:13:45 Influenza, high-dose, trivalent, PF 0 completed Lila Lopez null, [facility] 11/16/2023 16:01:40 COVID-19, mRNA, LNP-S, PF, 30 mcg/0.3 mL dose 1 [facility] 16:01:40 COVID-19, mRNA, LNP-S, PF, 30 mcg/0.3 mL dose 1 [facility]16[facility] 16:01:40 Influenza, adjuvanted, trivalent, PF 1 completed [facility] 11/16/2023 16:01:40 COVID-19, mRNA, LNP-S, PF, 30 mcg/0.3 mL dose 1 completed Lila Lopez null, [facility] 11/16/2023 16:01:40 COVID-19, mRNA, LNP-S, PF, 30 mcg/0.3 mL dose 2 completed Lila Lopez [facility] 11/16/2023 16:01:40 Influenza, split virus, quadrivalent, preservative 2 completed Lila Lopez null, [facility] 11/16/2023 16:01:40 RSV, recombinant, protein subunit RSVpreF, adjuvant reconstituted, 0.5 mL, PF 3 completed Lila Lopez null, [facility] 11/16/2023 16:01:40 COVID-19, mRNA, LNP-S, PF, reese-sucrose, 30 mcg/0.3 mL 3 completed Lila Lopez null, [facility] 11/16/2023 16:01:40 Influenza, split virus, quadrivalent, PF 3 completed Lila Lopez null, [facility] 11/16/2023 16:01:40 COVID-19, mRNA, LNP-S, PF, reese-sucrose, 30 mcg/0.3 mL 4 completed Mark Mcgregor MD [address], [place], [address], [facility] 09/14/2024 22:39:04 Influenza, split virus, trivalent, PF 4 completed Mark Mcgregor MD [address], [place], [address], [facility] 09/14/2024 22:39:04 Tdap 7 completed Mark Mcgregor MD [address], [place], [address], [facility] 08/09/2023 00:13:45 Influenza, high-dose, trivalent, PF 7 completed Lila anguiano, [facility] 11/16/2023 16:01:40 pneumococcal polysaccharide PPV23 7 completed Lila anguiano, [facility] 11/16/2023 16:01:40 Past Encounters Encounter ID Performer Location Encounter Start Date Encounter Closed Date Diagnosis/Indication Diagnosis SNOMED-CT Code Diagnosis ICD10 Code Diagnosis Note [id number] Mark Mcgregor MD [facility], [facility] [address] [place] [address] 02/12/2016 11:02:38 02/12/2016 11:54:37 Benign essential hypertension 4095088 I10 -- Lab to be done 04/21/16 Hyperlipidemia 99802435 E78.5 -- Labs to be done 04/21/16 Shoulder joint pain 2679 03427 M25.519 (Right greater than left) -- no trauma Morbid obesity 087985914 E66.01 -- advised wt loss; Patient gained 8 pounds since her last visit; -- Labs to be done 04/21/16 Diabetes mellitus 852132 09 E11.9 -- Labs to be done 04/21/16 [id number] Mark Mcgregor MD [facility], [facility] [address] [place] [address] 04/23/2016 08:41:12 04/23/2016 09:40:34 Screening for cancer 90467921 Z12.9 Acute urin jeffrey tract infection 351998833 N39.0 -- Patient reports she will be trying to get the culture results of the urine test; I will also try to obtain results also. Arthralgia of the ankle and/or foot 468113524 M25.579 (h/o lipoma ressection from [place] around 2001 and fracture around 2010) -- refer pt to [facility]. Diabetes mellitus 500419 09 E11.9 -- Uncontroll ed, but improved a lot from A1c of 11.1 (on 01/17/16) to 8.5 (on 04/21/16). Patient is currently on week #4 of Bydureon, hence full effect of Bydureon has not been realized yet. Morbid obesity 959879674 E66.01 -- Since on Bydureon, patient has lost 15 pounds since her last visit. [id number] Mark Mcgregor MD [facility], [facility] [address] [place] [address] 06/08/2016 13:30:35 06/08/2016 15:13:26 Mammography abnormal 668925022 R92.8 Diabetes mellitus 689302 09 E11.9 -- Uncontroll ed with A1c level VIII.5 on 04/21/16; patient is actively trying to improve her diabetes by losing weight and adherent to medication regime;-- will recheck labs around 07/23/16. Hyperlipidemia 68011045 E78.5 -- Cholestero l panel beautiful no medicine adjustment needed;-- will recheck labs around 07/23/16. Acute urin jeffrey tract infection 942506173 N39.0 -- Symptoms completely resolved per patient Arthralgia of the ankle and/or foot 610851185 M25.579 (h/o lipoma ressection from [place] around 2001 and fracture around 2010) -- refer pt to [facility] Warner.-- X-rays on 05/26/16 Sure what osteoarthr itis and plantar spur on right ankle/foot -- Patient had are seen med aide Dr. Mayes Morbid obesity 961372746 E66.01 -- Since on Bydureon, no wt change since her last visit. Screening for cancer 158 08094 Z12.9 Benign ess ential hypertension 0624458 I10 BP uncontroll ed -- change Amlodipine & Spironolac tone to Edarby & Coreg;-- Lab to be done 04/21/16 Bladder mu scle dysfunction - overactive 503207493 N32.81 [id number] Mark Mcgregor MD [facility] [address] [place] [address] 09/08/2016 09:01:34 09/08/2016 10:22:49 Morbid obesity 092381609 E66.01 -- pt gained 16.5 # since her last visit.-- pt's BMI today is 43.3 Hyperlipidemia 15194053 E78.5 -- Cholestero l panel beautiful no medicine adjustment needed;-- will recheck labs around 07/23/16. Diabetes mellitus 142508 09 E11.9 -- pt admits that she has not taken her Bydureon b/c of cost. Acute sinusitis 90334207 J01.90 Benign ess ential hypertension 5506043 I10 [id number] Mark Mcgregor MD [facility] [address] [place] [address] 12/10/2016 09:32:08 12/10/2016 11:14:40 Benign essential hypertension 9079342 I10 (BP uncontroll ed but pt is not feeling well; will hold off any med adjustment for now)-- schedule nursing BP check around mid to late December 2016)-- recheck lab(s) today Hyperlipidemia 68154974 E78.5 -- Cholestero l panel beautiful no medicine adjustment needed;-- recheck lab(s) today 12/10/16 Allergic rhinitis 393142 04 J30.9 Influenza- like symptoms 504280362 R68.89 Viral screening 69325818 4 Z11.59 -- check Hepatitis C antibody on 12/10/16 Depression screening 171 737126 Z13.89 -- Negative for depression symptoms Active or passive immunization 350880520 Z23 Body mass index 40+ - severely obese 335275278 Z68.41 -- advised weight loss; pt gained 11.5 # since her last visit. -- pt's BMI today is 43.3 Bladder mu scle dysfunction - overactive 129814104 N32.81 Gastroesop hageal reflux disease without esophagitis 098993983 K21.9 Type 2 anahi betes mellitus without complication 789296014 E11.9 -- pt admits that she has not taken her Bydureon b/c of cost. -- recheck lab(s) today 12/10/16 [id number] Mark Mcgregor MD [facility], [facility] [address] [place] [address] 03/09/2017 16:48:50 03/09/2017 19:00:29 Allergic rhinitis 58572299 J30.9 -- doing well when taking Fluticason e & Xyzal Type 2 anahi betes mellitus without complication 880779594 E11.9 -- pt admits that she has not taken her Bydureon b/c of cost. -- recheck lab(s) 3 weeks from 03/09/17 Benign ess ential hypertension 1473821 I10 (BP uncontroll ed but pt has not taken Edarbi x 2 months-- schedule nursing BP check in 3 weeks-- recheck lab(s) 3 weeks from 03/09/17 Hyperlipidemia 23343274 E78.5 -- Cholestero l panel beautiful no medicine adjustment needed;-- recheck lab(s) 3 weeks from 03/09/17 Body mass index 40+ - severely obese 455402011 Z68.42 -- advised weight loss; pt gained 8 # since her last visit. -- pt's BMI today is 46 (ideal is between 20-25) Gastroesop hageal reflux disease without esophagitis 097076744 K21.9 Viral screening 65765194 4 Z11.59 -- Hepatitis C antibody is nonreactiv e on 12/10/16 Depression screening 171 371915 Z13.89 -- Negative for depression symptoms Active or passive immunization 012701215 Z23 Bladder mu scle dysfunction - overactive 016468371 N32.81 Screening for osteoporosis 446721245 Z13.820 Screening for malignant neoplasm of colon 266046666 Z12.11 -- last stool globin was one 05/07/17-- Gastroente rologist Dr. Key recommends repeating colonoscop y 5 years from 07/17/16 Screening for malignant neoplasm of breast 481627240 Z12.31 -- Last mammogram was done on 06/18/[address] [facility] Screening for malignant neoplasm of cervix 307390753 Z12.4 [id number] Mark Mcgregor MD [facility] [address] [place] [address] 06/24/2017 09:01:47 06/24/2017 10:02:22 Adult health examination 205694328 Z00.00 Benign ess ential hypertension 7553043 I10 (BP uncontroll ed but pt has not taken Edarbi x 2 months-- schedule nursing BP check in 3 weeks-- recheck lab(s) 3 weeks from 03/09/17 Type 2 anahi betes mellitus without complication 445422585 E11.9 -- pt admits that she has not taken her Bydureon b/c of cost. -- recheck lab(s) 3 weeks from 03/09/17 Body mass index 40+ - severely obese 725930568 Z68.42 -- advised weight loss; pt gained 1 # since her last visit. -- pt's BMI today is 46.1 (ideal is between 20-25) Allergic rhinitis 286308 04 J30.9 -- doing well when taking Fluticason e & Xyzal Hyperlipidemia 40149040 E78.5 -- Cholestero l panel beautiful no medicine adjustment needed;-- recheck lab(s) 3 weeks from 03/09/17 Bladder mu scle dysfunction - overactive 209433406 N32.81 Gastroesop hageal reflux disease without esophagitis 043176451 K21.9 Viral screening 91490837 4 Z11.59 -- Hepatitis C antibody is nonreactiv e on 12/10/16 Depression screening 171 743447 Z13.89 -- Negative for depression symptoms Active or passive immunization 632853697 Z23 Screening for malignant neoplasm of colon 607434827 Z12.11 -- last stool globin was one 05/07/17-- Gastroente rologist Dr. Key recommends repeating colonoscop y 5 years from 07/17/16 Screening for malignant neoplasm of breast 468600551 Z12.31 -- Last mammogram was done on 06/18/[address] [facility] Screening for malignant neoplasm of cervix 977756634 Z12.4 Osteopenia 154852038 M85 .9 -- Last DEXA was done on 03/22/17 showed osteopenia in the spine and Hip Fatigue 41468787 R53.83 Antiplatel et agent therapy 423404848 Z79.02 [id number] Mark Mcgregor MD [facility], [facility] [address] [place] [address] 07/29/2017 09:31:27 07/29/2017 11:13:46 Type 2 diabetes mellitus without complication 455506965 E11.9 -- pt admits that she is still missing her Bydureon b/c of cost. -- recheck lab(s) on 09/24/17 Benign ess ential hypertension 8508974 I10 (BP uncontroll ed but pt has not taken Edarbi x 2 months-- schedule nursing BP check in 3 weeks-- recheck lab(s) on 09/24/17 Fatigue 57166004 R53.83 -- likely from MARKUS Body mass index 40+ - severely obese 293597081 Z68.42 (normal TFTs on 06/24/17) -- advised weight loss; pt lost 2 # since her last visit. -- pt's BMI today is 45.8 (ideal is between 20-25) Hyperlipidemia 44454085 E78.5 -- Cholestero l panel beautiful no medicine adjustment needed;-- recheck lab(s) on 09/24/17 Allergic rhinitis 129598 04 J30.9 -- doing well when taking Fluticason e & Xyzal Bladder mu scle dysfunction - overactive 279050276 N32.81 Osteopenia 290739511 M85 .9 -- Last DEXA was done on 03/22/17 showed osteopenia in the spine and Hip-- recheck lab(s) on 09/24/17 Gastroesop hageal reflux disease without esophagitis 657874097 K21.9 Viral screening 71935625 4 Z11.59 -- Hepatitis C antibody is nonreactiv e on 12/10/16 Depression screening 171 559824 Z13.89 -- Negative for depression symptoms Active or passive immunization 867996710 Z23 Screening for malignant neoplasm of colon 624209968 Z12.11 -- last stool globin was one 05/07/17-- Gastroente rologist Dr. Key recommends repeating colonoscop y 5 years from 07/17/16 Screening for malignant neoplasm of breast 858871078 Z12.31 -- Last mammogram was done on 06/18/[address] [facility] Screening for malignant neoplasm of cervix 694197467 Z12.4 Antiplatel et agent therapy 053410857 Z79.02 Obstructiv e sleep apnea of adult 7252597823 103 G47.33 -- start CPAP [id number] Mark Mcgregor MD [facility] [address] [place] [address] 09/23/2017 08:40:11 09/23/2017 09:41:33 Obstructive sleep apnea of adult 7516961235 103 G47.33 -- not doing well w/ CPAP mask bc of tightness and leakage; pt will be going back to [facility] for mask adjustemen t. Type 2 anahi betes mellitus without complication 219412095 E11.9 -- pt admits that she is still missing her Bydureon b/c of cost. -- recheck lab(s) on 09/24/17 Benign ess ential hypertension 7446140 I10 (BP uncontroll ed but pt has not taken Edarbi x 2 months-- schedule nursing BP check in 3 weeks-- recheck lab(s) on 09/24/17 Fatigue 86423219 R53.83 -- likely from MARKUS Body mass index 40+ - severely obese 799207999 Z68.42 (normal TFTs on 06/24/17) -- advised weight loss; pt gained 1 # since her last visit. -- pt's BMI today is 46 (ideal is between 20-25) Hyperlipidemia 55863613 E78.5 -- Cholestero l panel beautiful no medicine adjustment needed;-- recheck lab(s) on 09/24/17 Allergic rhinitis 250440 04 J30.9 -- doing well when taking Fluticason e & Xyzal Bladder mu scle dysfunction - overactive 949757128 N32.81 Osteopenia 072354720 M85 .9 -- Last DEXA was done on 03/22/17 showed osteopenia in the spine and Hip-- recheck lab(s) on 09/24/17 Gastroesop hageal reflux disease without esophagitis 400627534 K21.9 Viral screening 07373076 4 Z11.59 -- Hepatitis C antibody is nonreactiv e on 12/10/16 Depression screening 171 289335 Z13.89 -- Negative for depression symptoms Active or passive immunization 564737982 Z23 Screening for malignant neoplasm of colon 573970186 Z12.11 -- last stool globin was one 05/07/17-- Gastroente rologist Dr. Key recommends repeating colonoscop y 5 years from 07/17/16 Screening for malignant neoplasm of breast 405209090 Z12.31 -- Last mammogram was done on 07/23/[address] [facility] Screening for malignant neoplasm of cervix 132578621 Z12.4 -- f/u w/ CREDIT COLLECTIONS SPECIALIST Dr Moraima Quintero as directed by Dr Clay (pt reports she saw her in Jul 2017) Antiplatel et agent therapy 823687195 Z79.02 Epistaxis 13153954 R04.0 [id number] Mark Mcgregor MD [facility] [address] [place] [address] 01/05/2018 15:55:32 01/05/2018 18:31:29 Obstructive sleep apnea of adult 0369758640 103 G47.33 -- not doing well w/ CPAP mask bc of tightness and leakage;-- (cannot tolerate mask); pt is thinking of Oral appliance Type 2 anahi betes mellitus without complication 092331074 E11.9 -- pt admits that she is still missing her Bydureon b/c of cost. -- recheck lab(s) on 01/17/18 Benign ess ential hypertension 0044362 I10 (BP uncontroll ed but pt has not taken Edarbi x 2 months-- schedule nursing BP check in 3 weeks-- recheck lab(s) on 01/17/18 Epistaxis 12333349 R04.0 -- Status post cauterizat ion x2 by Dr. Beryl Ramirez-- Dr. Ramirez recommends sinus surgery now Fatigue 50197833 R53.83 -- likely from untreated MARKUS (cannot tolerate mask); pt is thinking of Oral appliance Body mass index 40+ - severely obese 734385194 Z68.42 (normal TFTs on 06/24/17) -- advised weight loss; pt lost 1 # since her last visit. -- pt's BMI today is 45.8 (ideal is between 20-25) Hyperlipidemia 73506771 E78.5 -- Cholestero l panel beautiful no medicine adjustment needed;-- recheck lab(s) on 09/24/17 Allergic rhinitis 402033 04 J30.9 -- doing well when taking Fluticason e & Xyzal Bladder mu scle dysfunction - overactive 051856514 N32.81 Osteopenia 317333029 M85 .9 -- Last DEXA was done on 03/22/17 showed osteopenia in the spine and Hip-- recheck lab(s) on 01/17/18 Gastroesop hageal reflux disease without esophagitis 681339583 K21.9 Viral screening 24509249 4 Z11.59 -- Hepatitis C antibody is nonreactiv e on 12/10/16 Depression screening 171 329246 Z13.89 -- Negative for depression symptoms Active or passive immunization 816234903 Z23 Screening for malignant neoplasm of colon 049304506 Z12.11 -- last stool globin was one 05/07/17-- Gastroente rologist Dr. Key recommends repeating colonoscop y 5 years from 07/17/16 Screening for malignant neoplasm of breast 826074415 Z12.31 -- Last mammogram was done on 07/23/[address] [facility] Screening for malignant neoplasm of cervix 429133794 Z12.4 -- f/u w/ CREDIT COLLECTIONS SPECIALIST Dr Moraima Quintero as directed by Dr Clay (pt reports she saw her in Jul 2017) Antiplatel et agent therapy 280635569 Z79.02 Peripheral vascular disease 631215783 I73.9 (Absent right dorsal pedis pulse) [id number] Mark Mcgregor MD [facility], [facility] [address] [place] [address] 05/24/2018 08:18:10 05/24/2018 09:10:53 Type 2 diabetes mellitus without complication 356593003 E11.9 -- pt admits that she is still missing her Bydureon b/c of cost. -- recheck lab(s) today 05/24/18 Obstructiv e sleep apnea of adult 2725474613 103 G47.33 -- not doing well w/ CPAP mask bc of tightness and leakage;-- (cannot tolerate mask); pt has appt w/ Dentist for Oral appliance Benign ess ential hypertension 2143755 I10 (BP uncontroll ed but pt has not taken Edarbi x 2 months-- schedule nursing BP check in 3 weeks-- recheck lab(s) on 01/17/18 Epistaxis 92428628 R04.0 -- Status post cauterizat ion x2 by Dr. eBryl Ramirez-- Dr. Ramirez recommends sinus surgery now but pt still comtemplat ing Body mass index 40+ - severely obese 058305852 Z68.42 (normal TFTs on 06/24/17) -- advised weight loss; pt lost 4 # since her last visit. -- pt's BMI today is 45.3 (ideal is between 20-25) Hyperlipidemia 03820924 E78.5 -- Cholestero l panel beautiful no medicine adjustment needed;-- recheck lab(s) on 09/24/17 Allergic rhinitis 080205 04 J30.9 -- doing well when taking Fluticason e & Xyzal Bladder mu scle dysfunction - overactive 721539118 N32.81 Osteopenia 506381550 M85 .9 -- Last DEXA was done on 03/22/17 showed osteopenia in the spine and Hip-- recheck lab(s) on 01/17/18 Peripheral vascular disease 248017776 I73.9 (Absent right dorsal pedis pulse) Gastroesop hageal reflux disease without esophagitis 879512586 K21.9 Depression screening 171 237821 Z13.89 -- Negative for depression symptoms Viral screening 17421058 4 Z11.59 -- Hepatitis C antibody is nonreactiv e on 12/10/16 Active or passive immunization 007016593 Z23 Antiplatel et agent therapy 213500854 Z79.02 Screening for malignant neoplasm of colon 337596187 Z12.11 -- last stool globin was one 05/07/17-- Gastroente rologist Dr. Key recommends repeating colonoscop y 5 years from 07/17/16 Screening for malignant neoplasm of breast 458608371 Z12.31 -- Last mammogram was done on 07/23/[address] [facility] Screening for malignant neoplasm of cervix 805956052 Z12.4 -- f/u w/ CREDIT COLLECTIONS SPECIALIST Dr Moraima Quintero as directed by Dr Clay (pt reports she saw her in Jul 2017) Pain of le ft shoulder joint 2757562695 8215796 M25.512 (x 6 months) Lumbar radiculopathy 128 M54.16 (x 8 months) -- radiates to bilateral lateral thighs. [id number] Mark Mcgregor MD [facility] [address] [place] [address] 08/24/2018 10:10:56 08/24/2018 12:12:05 Adult health examination 536215151 Z00.00 Lumbar radiculopathy 128 406134 M54.16 (x 8 months) -- radiates to bilateral lateral thighs. Type 2 anahi betes mellitus without complication 011292455 E11.9 -- pt admits that she is still missing her Bydureon b/c of cost.-- pt counseled on Importance of drinking at least 64 fluid ounces of fluids daily because Invokamet; Patient counseled on importance of maintainin g at least 64 fluid ounces of fluids daily, otherwise high risk of dehydratio n that by causing kidney failure.-- Patient also advised regarding need for hygiene due to glucosuria . -- recheck lab(s) 09/30/18 Obstructiv e sleep apnea of adult 8540971428 103 G47.33 -- not doing well w/ CPAP mask bc of tightness and leakage;-- (cannot tolerate mask); pt has appt w/ Dentist for Oral appliance Benign ess ential hypertension 1628828 I10 (BP uncontroll ed but pt has not taken Edarbi x 2 months-- schedule nursing BP check in 3 weeks-- recheck lab(s) on 01/17/18 Body mass index 40+ - severely obese 983444393 Z68.42 (normal TFTs on 06/24/17) -- advised weight loss; pt lost 4 # since her last visit. -- pt's BMI today is 45.3 (ideal is between 20-25) Hyperlipidemia 72297573 E78.5 -- Cholestero l panel beautiful no medicine adjustment needed;-- recheck lab(s) on 09/24/17 Allergic rhinitis 925327 04 J30.9 -- doing well when taking Fluticason e & Xyzal Bladder mu scle dysfunction - overactive 341745583 N32.81 Osteopenia 968071298 M85 .9 -- Last DEXA was done on 03/22/17 showed osteopenia in the spine and Hip-- recheck lab(s) on 01/17/18 Peripheral vascular disease 508099669 I73.9 (Absent right dorsal pedis pulse) Gastroesop hageal reflux disease without esophagitis 715254360 K21.9 Depression screening 171 403007 Z13.89 -- Negative for depression symptoms Antiplatel et agent therapy 535440521 Z79.02 Viral screening 61677361 4 Z11.59 -- Hepatitis C antibody is nonreactiv e on 12/10/16 Active or passive immunization 528599404 Z23 Screening for malignant neoplasm of colon 691254292 Z12.11 -- last stool globin was one 05/07/17-- Gastroente rologist Dr. Key recommends repeating colonoscop y 5 years from 07/17/16 Screening for malignant neoplasm of breast 829288706 Z12.31 -- Last mammogram was done on 07/25/[address] [facility] Screening for malignant neoplasm of cervix 466363237 Z12.4 -- f/u w/ CREDIT COLLECTIONS SPECIALIST Dr Moraima Quintero as directed by Dr Clay (pt reports she saw her in Jul 2017) [id number] [facility]ON TATUM [facility] [employer] [address] [place] [address] 11/08/2018 11:57:27 11/08/2018 12:29:42 Diabetes mellitus 40689039 E11.9 off bromocript ine - states causes nausea Candidiasis 19424325 B37 .9 Dysuria 73017413 R30.0 [id number] Mark Mcgregor MD [facility] [employer] [address] [place] [address] 12/01/2018 16:24:22 12/01/2018 17:55:28 Acute sinusitis 49016028 J01.90 Type 2 anahi betes mellitus without complication 669216041 E11.9 -- pt admits that she is still missing her Bydureon b/c of cost.-- pt counseled on Importance of drinking at least 64 fluid ounces of fluids daily because Invokamet; Patient counseled on importance of maintainin g at least 64 fluid ounces of fluids daily, otherwise high risk of dehydratio n that by causing kidney failure.-- Patient also advised regarding need for hygiene due to glucosuria . -- recheck lab(s) on 01/12/19 Lumbar radiculopathy 128 957250 M54.16 (x 8 months) -- radiates to bilateral lateral thighs. Obstructiv e sleep apnea of adult 5917419168 103 G47.33 -- not doing well w/ CPAP mask bc of tightness and leakage;-- (cannot tolerate mask); pt has appt w/ Dentist for Oral appliance Benign ess ential hypertension 0793212 I10 (BP uncontroll ed but pt has not taken Edarbi x 2 months-- schedule nursing BP check in 3 weeks-- recheck lab(s) on 01/12/19 Body mass index 40+ - severely obese 721689357 Z68.41 (normal TFTs on 06/24/17) -- advised weight loss; pt lost 4 # since her last visit. -- pt's BMI today is 42 (ideal is between 20-25) Hyperlipidemia 61288261 E78.5 -- Cholestero l panel beautiful no medicine adjustment needed;-- recheck lab(s) on 01/12/19 Allergic rhinitis 994053 04 J30.9 -- doing well when taking Fluticason e & Xyzal Bladder mu scle dysfunction - overactive 905655204 N32.81 Osteopenia 424538951 M85 .9 -- Last DEXA was done on 03/22/17 showed osteopenia in the spine and Hip-- recheck lab(s) on 01/12/19 Peripheral vascular disease 485336110 I73.9 (Absent right dorsal pedis pulse) Gastroesop hageal reflux disease without esophagitis 821935357 K21.9 Depression screening 171 279773 Z13.89 -- Negative for depression symptoms Antiplatel et agent therapy 101936081 Z79.02 Viral screening 95365643 4 Z11.59 -- Hepatitis C antibody is nonreactiv e on 12/10/16 Active or passive immunization 448885762 Z23 Screening for malignant neoplasm of colon 557771402 Z12.11 -- last stool globin was one 05/07/17-- Gastroente rologist Dr. Key recommends repeating colonoscop y 5 years from 07/17/16 Screening for malignant neoplasm of breast 211879611 Z12.31 -- Last mammogram was done on 07/25/[address] [facility] Screening for malignant neoplasm of cervix 252440981 Z12.4 -- f/u w/ CREDIT COLLECTIONS SPECIALIST Dr Moraima Quintero as directed by Dr Clay (pt reports she saw her in Jul 2017) [id number] Mark Mcgregor MD [facility] [address] [place] [address] 03/24/2019 12:26:00 03/24/2019 13:53:16 Acute sinusitis 87597158 J01.90 -- resolved Type 2 anahi betes mellitus without complication 881863198 E11.9 -- pt admits that she is still missing her Bydureon b/c of cost.-- pt counseled on Importance of drinking at least 64 fluid ounces of fluids daily because Invokamet; Patient counseled on importance of maintainin g at least 64 fluid ounces of fluids daily, otherwise high risk of dehydratio n that by causing kidney failure.-- Patient also advised regarding need for hygiene due to glucosuria . -- recheck lab(s) on within 5 days from 03/24/19 Obstructiv e sleep apnea of adult 1815217528 103 G47.33 -- not doing well w/ CPAP mask bc of tightness and leakage;-- (cannot tolerate mask); pt has appt w/ Dentist for Oral appliance Benign ess ential hypertension 1685130 I10 (BP uncontroll ed but pt has not taken Edarbi x 2 months-- EKG last done 03/24/19 -- schedule nursing BP check in 3 weeks-- recheck lab(s) on within 5 days from 03/24/19 Body mass index 40+ - severely obese 912735404 Z68.41 (normal TFTs on 06/24/17) -- advised weight loss; pt lost 16 # since her last visit. -- pt's BMI today is 39.9 (ideal is between 20-25) Hyperlipidemia 46828592 E78.5 -- Cholestero l panel beautiful no medicine adjustment needed;-- recheck lab(s) on within 5 days from 03/24/19 Allergic rhinitis 535823 04 J30.9 -- doing well when taking Fluticason e & Xyzal Lumbar radiculopathy 128 161872 M54.16 (x 8 months) -- radiates to bilateral lateral thighs. Bladder mu scle dysfunction - overactive 921122085 N32.81 Osteopenia 805488588 M85 .9 -- Last DEXA was done on 03/22/17 showed osteopenia in the spine and Hip-- recheck lab(s) on within 5 days from 03/24/19 Peripheral vascular disease 236353040 I73.9 (Absent right dorsal pedis pulse) Gastroesop hageal reflux disease without esophagitis 154740794 K21.9 -- currently on otc Omeprazole Depression screening 171 698277 Z13.89 -- Negative for depression symptoms Antiplatel et agent therapy 702269846 Z79.02 Viral screening 07759916 4 Z11.59 -- Hepatitis C antibody is nonreactiv e on 12/10/16 Active or passive immunization 827640248 Z23 Screening for malignant neoplasm of colon 215522391 Z12.11 -- last stool globin was one 05/07/17-- Gastroente rologist Dr. Key recommends repeating colonoscop y 5 years from 07/17/16 Screening for malignant neoplasm of breast 870399060 Z12.31 -- Last mammogram was done on 07/25/[address] 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 -- recheck lab(s) within 2 days from 07/12/19 Obstructiv e sleep apnea of adult 5325239590 103 G47.33 -- not doing well w/ CPAP mask bc of tightness and leakage;-- (cannot tolerate mask); pt has appt w/ Dentist for Oral appliance Benign ess ential hypertension 0462215 I10 (BP uncontroll ed but pt has not taken Edarbi, changed it to telmisarta n 80-- EKG last done 03/24/19 -- schedule nursing BP check in 3 weeks-- recheck lab(s) within 2 days from 07/12/19 Hyperlipidemia 34332865 E78.5 For Diabetics, LDL must be 99 or less. Encourage patient to increase compliance with both diet and atorvastat in.LDL Was 102 on 10/13/2018 -- recheck lab(s) within 2 days from 07/12/19 Allergic rhinitis 385810 04 J30.9 -- doing well when taking Fluticason e & Xyzal Lumbar radiculopathy 128 267170 M54.16 (x 8 months) -- radiates to bilateral lateral thighs. Bladder mu scle dysfunction - overactive 433362786 N32.81 Osteopenia 602398806 M85 .9 -- Last DEXA was done on 03/22/17 showed osteopenia in the spine and Hip-- Vit d was 63 on 10/13/2018 -- recheck lab(s) within 2 days from 07/12/19 Peripheral vascular disease 809317638 I73.9 (Absent right dorsal pedis pulse) -- JONATHAN was normal (1.04 bilateral; & triphasic) on 05/18/2018 Gastroesop hageal reflux disease without esophagitis 988334151 K21.9 -- currently on otc Omeprazole Depression screening 171 562065 Z13.89 -- Negative for depression symptoms Antiplatel et agent therapy 887880938 Z79.02 Viral screening 16113024 4 Z11.59 -- Hepatitis C antibody is nonreactiv e on 12/10/16 Active or passive immunization 021253148 Z23 Screening for malignant neoplasm of colon 978380547 Z12.11 -- last stool globin was one 05/07/17-- Gastroente rologist Dr. Key recommends repeating colonoscop y 5 years from 07/17/16 Screening for malignant neoplasm of breast 605751149 Z12.31 -- Last mammogram was done on 07/25/[address] [facility] Screening for malignant neoplasm of cervix 075495668 Z12.4 -- f/u w/ CREDIT COLLECTIONS SPECIALIST Dr Moraima Quintero as directed by Dr Clay (pt reports she saw her in Jul 2017) Body mass index 30+ - obesity 081526100 Z68.38 (normal TFTs on 06/24/17) -- advised weight loss; pt lost 9 # since her last visit (since on Bydureon & Invokamet) -- pt's BMI today is 38.7 (ideal is between 20-25) Carotid ar santosh stenosis 83505808 I65.29 -- left carotid 16-49% stenosed-- repeat carotid doppler around 07/09/20 Unsteady gait 065049446 R26.81 [id number] Mark Mcgregor MD [facility] [address] [place] [address] 11/07/2019 15:02:02 11/07/2019 15:56:41 Adult health examination 448404392 Z00.00 Choroidal retinal neovascularization 24569555 H35.059 normal carotid study on 06/21/2019 Type 2 anahi betes mellitus without complication 237665388 E11.9 -- pt admits that she is still missing her Bydureon b/c of cost.-- pt counseled on Importance of drinking at least 64 fluid ounces of fluids daily because Invokamet; Patient counseled on importance of maintainin g at least 64 fluid ounces of fluids daily, otherwise high risk of dehydratio n that by causing kidney failure.-- Patient also advised regarding need for hygiene due to glucosuria . -- recheck lab(s) today 11/07/19 Obstructiv e sleep apnea of adult 4134986839 103 G47.33 -- not doing well w/ CPAP mask bc of tightness and leakage;-- (cannot tolerate mask); pt has appt w/ Dentist for Oral appliance Benign ess ential hypertension 2442113 I10 (BP uncontroll ed but pt has not taken Edarbi, changed it to telmisarta n 80-- EKG last done 03/24/19 -- schedule nursing BP check in 3 weeks-- recheck lab(s) today 11/07/19 Body mass index 30+ - obesity 564424521 Z68.36 (normal TFTs on 06/24/17) -- advised weight loss; pt lost 15 # since her last visit (since on Bydureon & Invokamet) -- pt's BMI today is 36.3 (ideal is between 20-25) Hyperlipidemia 93068742 E78.5 For Diabetics, LDL must be 99 or less. Encourage patient to increase compliance with both diet and atorvastat in.LDL Was 102 on 10/13/2018 -- recheck lab(s) today 11/07/19 Allergic rhinitis 534565 04 J30.9 -- doing well when taking Fluticason e & Xyzal Lumbar radiculopathy 128 745800 M54.16 (x 8 months) -- radiates to bilateral lateral thighs. Bladder mu scle dysfunction - overactive 904763490 N32.81 Osteopenia 572478905 M85 .9 -- Last DEXA was done on 03/22/17 showed osteopenia in the spine and Hip-- Vit d was 63 on 10/13/2018 -- recheck lab(s) today 11/07/19 Peripheral vascular disease 277147841 I73.9 (Absent right dorsal pedis pulse) -- JONATHAN was normal (1.04 bilateral; & triphasic) on 05/18/2018 Carotid ar santosh stenosis 13626416 I65.29 (left carotid 16-49% stenosed) -- repeat carotid doppler around 06/21/20 Gastroesop hageal reflux disease without esophagitis 443023437 K21.9 -- currently on otc Omeprazole Unsteady gait 908717568 R26.81 -- pt states she is seeing Neurologis t Dr Park whom ordered MRI of brain which she cannot do (due to recent cataract surgery). Pt instructed to keep close followup w/ Dr Park.-- further management as per Neurologtiffanie t Dr Park. Depression screening 171 541999 Z13.89 -- Negative for depression symptoms Antiplatel et agent therapy 078163389 Z79.02 Active or passive immunization 838829837 Z23 -- pt is current with all her vaccinatio ns. Screening for malignant neoplasm of colon 587629113 Z12.11 -- last stool globin was one 05/07/17-- Gastroente rologist Dr. Key recommends repeating colonoscop y 5 years from 07/17/16 Screening for malignant neoplasm of breast 085517332 Z12.31 -- Last mammogram was done on 07/25/[address] 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 723804635 E11.3299 (left eye blindness) [id number] Mark Mcgregor MD [facility] [address] [place] [address] 02/29/2020 10:41:36 02/29/2020 12:30:25 Type 2 diabetes mellitus without complication 345641853 E11.9 -- pt admits that she is still missing her Bydureon b/c of cost.-- pt counseled on Importance of drinking at least 64 fluid ounces of fluids daily because Invokamet; Patient counseled on importance of maintainin g at least 64 fluid ounces of fluids daily, otherwise high risk of dehydratio n that by causing kidney failure.-- Patient also advised regarding need for hygiene due to glucosuria . -- recheck lab(s) 06/04/20 (labs from today is still pending) Obstructiv e sleep apnea of adult 1465455387 103 G47.33 -- not doing well w/ CPAP mask bc of tightness and leakage;-- (cannot tolerate mask); pt has appt w/ Dentist for Oral appliance Benign ess ential hypertension 6885043 I10 (BP uncontroll ed but pt has not taken Edarbi, changed it to telmisarta n 80-- EKG last done 03/24/19 -- schedule nursing BP check in 3 weeks Body mass index 30+ - obesity 690304456 Z68.36 (normal TFTs on 06/24/17) -- advised weight loss; pt lost 5 # since her last visit (since on Bydureon & Invokamet) -- pt's BMI today is 36.3 (ideal is between 20-25) Hyperlipidemia 93923269 E78.5 For Diabetics, LDL must be 99 or less. Encourage patient to increase compliance with both diet and atorvastat in.LDL Was 102 on 10/13/2018 -- recheck lab(s) today 11/07/19 Allergic rhinitis 702516 04 J30.9 -- doing well when taking Fluticason e & Xyzal Lumbar radiculopathy 128 707231 M54.16 (x 8 months) -- radiates to bilateral lateral thighs. Bladder mu scle dysfunction - overactive 065346231 N32.81 Osteopenia 844445345 M85 .9 -- Last DEXA was done on 03/22/17 showed osteopenia in the spine and Hip-- Vit d was 63 on 10/13/2018 -- recheck lab(s) today 11/07/19 Peripheral vascular disease 809114612 I73.9 (Absent right dorsal pedis pulse) -- JONATHAN was normal (1.04 bilateral; & triphasic) on 05/18/2018 Carotid ar santosh stenosis 04083039 I65.29 (left carotid 16-49% stenosed) -- repeat carotid doppler around 06/21/20 Gastroesop hageal reflux disease without esophagitis 048771419 K21.9 -- currently on otc Omeprazole Unsteady gait 830829238 R26.81 -- pt states she is seeing Neurologis t Dr Park whom ordered MRI of brain which she cannot do (due to recent cataract surgery). Pt instructed to keep close followup w/ Dr Park.-- further management as per Neurologis t Dr Park. 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 Screening for malignant neoplasm of colon 806447139 Z12.11 -- last stool globin was one 05/07/17-- Gastroente rologist Dr. Shahid recommends repeating colonoscop y 5 years from 07/17/16 Screening for malignant neoplasm of breast 846343758 Z12.31 -- Last mammogram was done on 07/25/[address] [facility] Screening for malignant neoplasm of cervix 970114126 Z12.4 -- f/u w/ CREDIT COLLECTIONS SPECIALIST Dr Moraima Quintero as directed by Dr Clay (pt reports she saw her in Jul 2017) [id number] Mark Mcgregor MD [facility] [address] [place] [address] 06/04/2020 09:09:28 06/04/2020 12:50:48 Type 2 diabetes mellitus without complication 051784510 E11.9 -- pt counseled on Importance of drinking at least 64 fluid ounces of fluids daily because Invokamet; Patient counseled on importance of maintainin g at least 64 fluid ounces of fluids daily, otherwise high risk of dehydratio n that by causing kidney failure.-- Patient also advised regarding need for hygiene due to glucosuria . Progressiv cedric worsening diabetes (A1c 7.0 % --> 8.7 --> 9.3 --> 9.7 %) Obstructiv e sleep apnea of adult 2079195643 103 G47.33 -- not doing well w/ CPAP mask bc of tightness and leakage;-- (cannot tolerate mask); pt has appt w/ Dentist for Oral appliance Benign ess ential hypertension 0558541 I10 -- EKG last done 03/24/19 Body mass index 30+ - obesity 899094506 Z68.36 (normal TFTs on 06/24/17) -- advised weight loss; pt lost 15 # since her last visit (since on Bydureon & Invokamet) -- pt's BMI today is 35.5 (ideal is between 20-25) Hyperlipidemia 34792862 E78.5 For Diabetics, LDL must be 99 or less. Encourage patient to increase compliance with both diet and atorvastat in. Allergic rhinitis 712647 04 J30.9 -- doing well when taking Fluticason e & Xyzal Lumbar radiculopathy 128 585672 M54.16 (x 8 months) -- radiates to bilateral lateral thighs. Bladder mu scle dysfunction - overactive 962763742 N32.81 Osteopenia 068055286 M85 .9 -- Last DEXA was done on 03/22/17 showed osteopenia in the spine and Hip-- Vit d was 63 on 10/13/2018 Peripheral vascular disease 204325526 I73.9 (Absent right dorsal pedis pulse) -- JONATHAN was normal (1.04 bilateral; & triphasic) on 05/18/2018 Carotid ar santosh stenosis 93879432 I65.29 (left carotid 16-49% stenosed) -- repeat carotid doppler around 03/06/2021 Gastroesop hageal reflux disease without esophagitis 710604109 K21.9 -- currently on otc Omeprazole Unsteady gait 156654897 R26.81 -- pt states she is seeing Neurologis t Dr Park whom ordered MRI of brain which she cannot do (due to recent cataract surgery). Pt instructed to keep close followup w/ Dr Park.-- further management as per Neurologtiffanie t Dr Park. 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 Screening for malignant neoplasm of colon 495330176 Z12.11 -- Gastroente rologist Dr. Key recommends repeating colonoscop y 5 years from 07/17/16--> Pt is due for repeat colonoscop y Jun 2021 Screening for malignant neoplasm of breast 750818735 Z12.31 -- Last mammogram was done on 03/06/20 Screening for malignant neoplasm of cervix 001715216 Z12.4 -- f/u w/ CREDIT COLLECTIONS SPECIALIST Dr Moraima Quintero as directed by Dr Clay (pt reports she saw her in Jul 2017) [id number] Mark Mcgregor MD [facility] [address] [place] [address] 08/22/2020 09:22:31 08/22/2020 10:49:59 Type 2 diabetes mellitus without complication 283122482 E11.9 -- pt counseled on Importance of drinking at least 64 fluid ounces of fluids daily because Invokamet; Patient counseled on importance of maintainin g at least 64 fluid ounces of fluids daily, otherwise high risk of dehydratio n that by causing kidney failure.-- Patient also advised regarding need for hygiene due to glucosuria .-- recheck lab(s) 11/01/20 Essential hypertension 93569631 I10 -- EKG done on 06/04/20 Hyperlipidemia 60661609 E78.5 For Diabetics, LDL must be 99 or less. Encourage patient to increase compliance with both diet and atorvastat in. Overactive urinary bladder 933555127 N32.81 Active or passive immunization 074603068 Z23 -- pt is current with all her vaccinatio ns. Hepatitis C screening 41 8775080 Z11.59 -- Hepatitis C antibody is nonreactiv e on 12/10/16 Screening for malignant neoplasm of colon 576474674 Z12.11 -- Gastroente rologist Dr. Key recommends repeating colonoscop y 5 years from 07/17/16--> Pt is due for repeat colonoscop y Jun 2021 Screening for malignant neoplasm of breast 456814192 Z12.31 -- Last mammogram was done on 03/06/20 Screening for malignant neoplasm of cervix 787929101 Z12.4 -- f/u w/ CREDIT COLLECTIONS SPECIALIST Dr Moraima Quintero as directed by Dr Clay (pt reports she saw her in Jul 2017) Osteopenia 667068701 M85 .9 -- DEXA was done on 06/04/20 showed osteopenia in the spine and Hip [id number] Mark Mcgregor MD [facility] [address] [place] [address] 12/09/2020 10:39:09 12/09/2020 19:23:06 Type 2 diabetes mellitus without complication 046488575 E11.9 -- pt counseled on Importance of drinking at least 64 fluid ounces of fluids daily because Invokamet; Patient counseled on importance of maintainin g at least 64 fluid ounces of fluids daily, otherwise high risk of dehydratio n that by causing kidney failure.-- Patient also advised regarding need for hygiene due to glucosuria .-- recheck lab(s) within 4 days from 12/09/20 Essential hypertension 43271126 I10 -- EKG done on 06/04/20-- recheck lab(s) within 4 days from 12/09/20 Hyperlipidemia 07576673 E78.5 -- recheck lab(s) within 4 days from 12/09/20 Osteopenia 136005433 M85 .9 -- DEXA was done on 06/04/20 showed osteopenia in the spine and Hip Overactive urinary bladder 075863178 N32.81 Hepatitis C screening 41 0734640 Z11.59 -- Hepatitis C antibody is nonreactiv e on 12/10/16 Active or passive immunization 508905554 Z23 -- pt is current with all her vaccinatio ns. Screening for malignant neoplasm of colon 890819703 Z12.11 -- Gastroente rologist Dr. Key recommends repeating colonoscop y 5 years from 07/17/16--> Pt is due for repeat colonoscop y Jun 2021 Screening for malignant neoplasm of breast 421207379 Z12.31 -- Last mammogram was done on 03/06/20 Screening for malignant neoplasm of cervix 508572481 Z12.4 -- f/u w/ CREDIT COLLECTIONS SPECIALIST Dr Moraima Quintero as directed by Dr Clay (pt reports she saw her in Jul 2017) Acute stress disorder 67 276836 F43.0 -- nephew Irwin around 11/19/20 [id number] Mark Mcgregor MD [facility] [address] [place] [address] 06/11/2021 09:59:56 06/11/2021 11:38:11 Type 2 diabetes mellitus without complication 026221444 E11.9 -- pt counseled on Importance of drinking at least 64 fluid ounces of fluids daily because Invokamet; Patient counseled on importance of maintainin g at least 64 fluid ounces of fluids daily, otherwise high risk of dehydratio n that by causing kidney failure.-- Patient also advised regarding need for hygiene due to glucosuria .-- recheck lab(s) today Essential hypertension 36380376 I10 -- recheck lab(s) today Hyperlipidemia 90381558 E78.5 -- recheck lab(s) today Osteopenia 504366779 M85 .9 -- DEXA was done on 06/04/20 showed osteopenia in the spine and Hip Overactive urinary bladder 096007078 N32.81 Acute stress disorder 67 523440 F43.0 -- nephew Irwin around 11/19/20 Hepatitis C screening 41 3108723 Z11.59 -- Hepatitis C antibody is nonreactiv e on 12/10/16 Active or passive immunization 538826041 Z23 -- pt is current with all her vaccinatio ns. Screening for malignant neoplasm of colon 361107864 Z12.11 -- Gastroente rologist Dr. Key recommends repeating colonoscop y 5 years from 07/17/16--> Pt is due for repeat colonoscop y Jun 2021 Screening for malignant neoplasm of breast 369201780 Z12.31 -- Last mammogram was done on 03/06/20 Screening for malignant neoplasm of cervix 779154757 Z12.4 -- f/u w/ CREDIT COLLECTIONS SPECIALIST Dr Moraima Quintero as directed by Dr Clay (pt reports she saw her in Jul 2017) Adult heal th examination 681683833 Z00.00 Body mass index 30+ - obesity 046551274 Z68.36 (normal TFTs on 06/24/17) -- advised weight loss; no weight loss since her last visit (since on Bydureon & Invokamet) -- pt's BMI today is 36.1 (ideal is between 20-25) [id number] Mark Mcgregor MD [facility] [address] [place] [address] 09/17/2021 11:25:04 09/17/2021 12:33:12 Type 2 diabetes mellitus without complication 539122264 E11.9 -- pt counseled on Importance of drinking at least 64 fluid ounces of fluids daily because Invokamet; Patient counseled on importance of maintainin g at least 64 fluid ounces of fluids daily, otherwise high risk of dehydratio n that by causing kidney failure.-- Patient also advised regarding need for hygiene due to glucosuria .-- recheck lab(s) within 7 days from 09/17/21 Essential hypertension 07761579 I10 -- recheck lab(s) within 7 days from 09/17/21 Hyperlipidemia 84825517 E78.5 -- recheck lab(s) within 7 days from 09/17/21 Osteopenia 705221368 M85 .9 -- DEXA was done on 06/04/20 showed osteopenia in the spine and Hip-- recheck lab(s) within 7 days from 09/17/21 Overactive urinary bladder 117196825 N32.81 -- controlled w/ Solifenaci n Acute stress disorder 67 499715 F43.0 -- nephew Irwin around 11/19/20 Body mass index 30+ - obesity 517155410 Z68.36 (normal TFTs on 06/24/17) -- advised weight loss; pt gained 3 # since her last visit-- pt's BMI today is 36.5 (ideal is between 20-25) Hepatitis C screening 41 4363773 Z11.59 -- Hepatitis C antibody is nonreactiv e on 12/10/16 Active or passive immunization 729015247 Z23 -- pt is current with all her vaccinatio ns. Screening for malignant neoplasm of colon 053330861 Z12.11 -- Gastroente rologist Dr. 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, and diabetic retinopath y) -- no light perception [id number] Mark Mcgregor MD [facility] [address] [place] [address] 12/18/2021 14:44:45 12/18/2021 16:25:17 Type 2 diabetes mellitus without complication 015743075 E11.9 -- pt counseled on Importance of drinking at least 64 fluid ounces of fluids daily because Invokamet; Patient counseled on importance of maintainin g at least 64 fluid ounces of fluids daily, otherwise high risk of dehydratio n that by causing kidney failure.-- Patient also advised regarding need for hygiene due to glucosuria .-- pt does not want to change Invokamet (free w/ coupon) to Synjardy (insurance preferred but cost $75/-)-- recheck lab(s) within 5 days from 12/18/21 Essential hypertension 93796758 I10 -- recheck lab(s) within 5 days from 12/18/21 Hyperlipidemia 85897396 E78.5 -- recheck lab(s) within 5 days from 12/18/21 Osteopenia 917797451 M85 .9 -- DEXA was done on 06/04/20 showed osteopenia in the spine and Hip-- recheck lab(s) within 5 days from 12/18/21 Overactive urinary bladder 802347225 N32.81 -- controlled w/ Solifenaci n Acute stress disorder 67 183199 F43.0 -- nephew Irwin around 11/19/20 Body mass index 30+ - obesity 152661703 Z68.36 (normal TFTs on 06/24/17) -- advised weight loss; pt gained 3 # since her last visit-- pt's BMI today is 36.5 (ideal is between 20-25) Blind left eye 266616399 H54.42A5 (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 Screening for malignant neoplasm of colon 251053804 Z12.11 -- Gastroente rologist Dr. Key recommends repeating colonoscop y 5 years from 07/17/16--> Pt is due for repeat colonoscop y Jun 2021 Screening for malignant neoplasm of breast 920107261 Z12.31 -- Last mammogram was done on 12/10/21 Screening for malignant neoplasm of cervix 026065158 Z12.4 -- f/u w/ CREDIT COLLECTIONS SPECIALIST Dr Moraima Quintero as directed by Dr Clay (pt reports she saw her in Jul 2017) Diabetic p eripheral neuropathy 881789655 E11.40 (fingers in both hand feels cold all the time; and Rt toes feels numb)-- recheck lab(s) within 5 days from 12/18/21 [id number] Mark Mcgregor MD [facility] [address] [place] [address] 03/19/2022 08:51:19 03/19/2022 10:11:34 Diabetic peripheral neuropathy 496109749 E11.40 (fingers in both hand feels cold all the time; and Rt toes feels numb)-- normal Vit B1, B6, B12 (B12 307 ON 12/25/21), and TFTs on 12/25/21 Type 2 anahi betes mellitus without complication 679267312 E11.9 -- pt counseled on Importance of drinking at least 64 fluid ounces of fluids daily because Invokamet; Patient counseled on importance of maintainin g at least 64 fluid ounces of fluids daily, otherwise high risk of dehydratio n that by causing kidney failure.-- Patient also advised regarding need for hygiene due to glucosuria .-- pt does not want to change Invokamet (free w/ coupon) to Synjardy (insurance preferred but cost $75/-)-- recheck lab(s) 03/31/22 Essential hypertension 78094579 I10 -- recheck lab(s) 03/31/22 Hyperlipidemia 35896970 E78.5 -- recheck lab(s) 03/31/22 Osteopenia 919796067 M85 .9 -- DEXA was done on 06/04/20 showed osteopenia in the spine and Hip-- normal Vit D and PTH level on 12/25/21 Overactive urinary bladder 790842050 N32.81 -- controlled w/ Solifenaci n Acute stress disorder 67 635006 F43.0 -- nephew Irwin around 11/19/20-- doing well off Citalopram Body mass index 30+ - obesity 288175656 Z68.36 (normal TFTs on 06/24/17) -- advised weight loss; pt lost 1 # since her last visit-- pt's BMI today is 36.6 (ideal is between 20-25) Blind left eye 252336104 H54.42A5 (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 Screening for malignant neoplasm of colon 873755253 Z12.11 -- Gastroente rologist Dr. Key recommends repeating colonoscop y 5 years from 07/17/16--> Pt is due for repeat colonoscop y Jun 2021; pt reported she already has it scheduled for April 2022 Screening for malignant neoplasm of breast 830677520 Z12.31 -- Last mammogram was done on 12/10/21 Screening for malignant neoplasm of cervix 083151991 Z12.4 -- referred to Marketing Production Coordinator Dr Nichelle Chatterjee Cough 28710176 R05.9 (had covid sx on 02/27/22 & tested positive on 03/02/22) -- cough lingered on since-- no THOMPSON/SOB [id number] Mark Mcgregor MD [facility] [address] [place] [address] 07/15/2022 14:48:35 07/15/2022 16:41:52 Adult health examination 804147213 Z00.00 Type 2 anahi betes mellitus without complication 771774165 E11.9 -- pt counseled on Importance of drinking at least 64 fluid ounces of fluids daily because Invokamet; Patient counseled on importance of maintainin g at least 64 fluid ounces of fluids daily, otherwise high risk of dehydratio n that by causing kidney failure.-- Patient also advised regarding need for hygiene due to glucosuria .-- pt does not want to change Invokamet (free w/ coupon) to Synjardy (insurance preferred but cost $75/-)-- recheck lab(s) 07/27/22 Diabetic p eripheral neuropathy 237086458 E11.40 (fingers in both hand feels cold all the time; and Rt toes feels numb)-- normal Vit B1, B6, B12 (B12 307 ON 12/25/21), and TFTs on 12/25/21 Essential hypertension 38796976 I10 -- recheck lab(s) 07/27/22 Hyperlipidemia 14100528 E78.5 -- recheck lab(s) 07/27/22 Osteopenia 707766248 M85 .9 -- DEXA was done on 06/04/20 showed osteopenia in the spine and Hip-- normal Vit D and PTH level on 12/25/21 Overactive urinary bladder 644349596 N32.81 -- controlled w/ Solifenaci n Acute stress disorder 67 660530 F43.0 -- nephew Irwin around 11/19/20-- doing well off Citalopram Body mass index 30+ - obesity 165768434 Z68.36 (normal TFTs on 06/24/17) -- advised weight loss; pt lost 8 # since her last visit-- pt's BMI today is 35.5 (ideal is between 20-25) Blind left eye 748952111 H54.42A5 (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 Screening for malignant neoplasm of colon 870953466 Z12.11 -- Gastroente rologist Dr. Key recommends repeating colonoscop y 5 years from 07/17/16--> Pt reported on 07/15/22 that she had a normal screening colonoscop y 07/14/[address] Key Screening for malignant neoplasm of breast 799162362 Z12.31 -- Last mammogram was done on 12/10/21 Screening for malignant neoplasm of cervix 066920778 Z12.4 Family his tory of Thalassemia 169127756 Z83.2 (sister) [id number] Mark Mcgregor MD [facility] [address] [place] [address] 08/13/2022 09:49:13 08/13/2022 12:20:54 Essential hypertension 14471867 I10 -- BP controlled off Telmisarta n-- no more dizziness since off Telmisarta n Syncope 995356909 R55 -- head CT, CXR, Lumbar xrays (unreveali ng except for spine degenerati ve changes)-- labs at [facility] were also unrevealin g-- only once-- no recurrence since 08/11/22 [id number] Mark Mcgregor MD [facility] [address] [place] [address] 03/25/2023 15:53:43 03/25/2023 18:02:40 Type 2 diabetes mellitus without complication 378868720 E11.9 -- pt counseled on Importance of drinking at least 64 fluid ounces of fluids daily because Invokamet; Patient counseled on importance of maintainin g at least 64 fluid ounces of fluids daily, otherwise high risk of dehydratio n that by causing kidney failure.-- Patient also advised regarding need for hygiene due to glucosuria .-- pt does not want to change Invokamet (free w/ coupon) to Synjardy (insurance preferred but cost $75/-)-- recheck lab(s) within 7 days from 03/25/23 Diabetic p eripheral neuropathy 194484187 E11.40 (fingers in both hand feels cold all the time; and Rt toes feels numb)-- normal Vit B1, B6, B12 (B12 307 ON 12/25/21), and TFTs on 12/25/21 Essential hypertension 00001909 I10 -- recheck lab(s) within 7 days from 03/25/23 Hyperlipidemia 99940547 E78.5 -- recheck lab(s) within 7 days from 03/25/23 Osteopenia 356204863 M85 .9 -- DEXA was done on 06/04/20 showed osteopenia in the spine and Hip-- recheck lab(s) within 7 days from 03/25/23 Overactive urinary bladder 016074969 N32.81 -- controlled w/ Solifenaci n Family his tory of Thalassemia 885407871 Z83.2 (sister) -- recheck lab(s) within 7 days from 03/25/23 Acute stress disorder 67 083723 F43.0 -- nephew Irwin around 11/19/20-- doing well off Citalopram 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 Screening for malignant neoplasm of colon 933878204 Z12.11 -- Gastroente rologist Dr. Key recommends repeating colonoscop y 5 years from 07/17/16--> Pt reported on 07/15/22 that she had a normal screening colonoscop y 07/14/[address] Key Screening for malignant neoplasm of breast 108093560 Z12.31 -- Last mammogram was done on 12/10/21 Screening for malignant neoplasm of cervix 347325218 Z12.4 [id number] Mark Mcgregor MD [facility], [facility] [address] [place] [address] 07/07/2023 15:57:46 07/07/2023 17:51:40 Adult health examination 487396125 Z00.00 Type 2 anahi betes mellitus without complication 991390158 E11.9 -- not taking Toujeo and her A1c was 6.2 on 04/23/23-- recheck lab(s) 07/27/23 Diabetic p eripheral neuropathy 474432304 E11.40 (fingers in both hand feels cold all the time; and Rt toes feels numb)-- normal Vit B1, B6, B12 (B12 307 ON 12/25/21), and TFTs on 12/25/21 Essential hypertension 99993194 I10 -- recheck lab(s) 07/27/22 Hyperlipidemia 29721252 E78.5 -- recheck lab(s) 07/27/22 Osteopenia 832749425 M85 .9 -- DEXA done on 09/23/22-- normal Vit D and PTH level on 12/25/21 Overactive urinary bladder 855934305 N32.81 -- controlled w/ Solifenaci n Family his tory of Thalassemia 150924030 Z83.2 (sister) Acute stress disorder 67 691544 F43.0 -- nephew Irwin around 11/19/20-- doing well off Citalopram Blind left eye 141428109 H54.42A5 (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 Screening for malignant neoplasm of colon 685431586 Z12.11 -- Gastroente rologist Dr. Key recommends repeating colonoscop y 5 years from 07/17/16--> Pt reported on 07/15/22 that she had a normal screening colonoscop y 07/14/[address] Key Screening for malignant neoplasm of breast 390668810 Z12.31 -- Last mammogram was done 07/04/23 at [facility] Screening for malignant neoplasm of cervix 056775143 Z12.4 HIV screening 440117319 Z11.4 [id number] Mark Mcgregor MD [facility] [address] [facility] [address] [place] [address] 11/16/2023 16:01:01 11/16/2023 17:44:51 Type 2 diabetes mellitus without complication 629715714 E11.9 -- not taking Toujeo;-- A1c was 6.2 on 04/23/23-- recheck lab(s) within 3 days from 11/16/23 Diabetic p eripheral neuropathy 854614246 E11.40 (fingers in both hand feels cold all the time; and Rt toes feels numb)-- normal Vit B1, B6, B12 (B12 307 ON 12/25/21), and TFTs on 12/25/21 Essential hypertension 95949350 I10 -- recheck lab(s) within 3 days from 11/16/23 Hyperlipidemia 01544143 E78.5 -- recheck lab(s) within 3 days from 11/16/23 Osteopenia 416464642 M85 .9 -- normal Vit D and PTH level on 12/25/21-- DEXA done on 09/23/22 Overactive urinary bladder 539557501 N32.81 -- controlled w/ Solifenaci n Family his tory of Thalassemia 202688889 Z83.2 (sister) -- recheck lab(s) within 3 days from 11/16/23 Acute stress disorder 67 568493 F43.0 -- nephew Irwin around 11/19/20-- doing well off Citalopram Blind left eye 097655193 H54.42A5 (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 Active or passive immunization 054913293 Z23 -- pt is current with all her vaccinatio ns. Screening for malignant neoplasm of colon 040331865 Z12.11 -- Gastroente rologist Dr. Key recommends repeating colonoscop y 5 years from 07/17/16--> Pt reported on 07/15/22 that she had a normal screening colonoscop y 07/14/[address] Key Screening for malignant neoplasm of breast 719391935 Z12.31 -- Last mammogram was done 07/04/23 at [facility] Screening for malignant neoplasm of cervix 468568344 Z12.4 [id number] Mark Mcgregor MD [facility], [facility] [address] [place] [address] 03/02/2024 15:58:59 03/02/2024 18:40:52 Type 2 diabetes mellitus without complication 557258850 E11.9 -- not taking Toujeo;-- A1c was 6.2 on 04/23/23-- recheck lab(s) within 5 days from today Diabetic p eripheral neuropathy 460245084 E11.40 (fingers in both hand feels cold all the time; and Rt toes feels numb)-- normal Vit B1, B6, B12 (B12 307 ON 12/25/21), and TFTs on 12/25/21 Essential hypertension 82611533 I10 -- recheck lab(s) within 5 days from today Hyperlipidemia 14687080 E78.5 -- recheck lab(s) within 5 days from today Osteopenia 457022614 M85 .9 -- normal Vit D and PTH level on 12/25/21-- DEXA done on 09/23/22 Overactive urinary bladder 761210942 N32.81 -- controlled w/ Solifenaci n Family his tory of Thalassemia 732558913 Z83.2 (sister) -- recheck lab(s) within 5 days from today Acute stress disorder 67 329986 F43.0 -- nephew Irwin around 11/19/20-- doing well off Citalopram Blind left eye 490282963 H54.42A5 (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 Screening for malignant neoplasm of colon 565777138 Z12.11 -- Gastroente rologist Dr. Key--> Pt reported on 07/15/22 that she had a normal screening colonoscop y 07/14/[address] Key Screening for malignant neoplasm of breast 728543916 Z12.31 -- Last mammogram was done 07/04/23 at [facility] Screening for malignant neoplasm of cervix 305682657 Z12.4 [id number] Mark Mcgregor MD [facility], [facility] [address] [place] [address] 07/05/2024 11:35:50 07/05/2024 13:54:52 Type 2 diabetes mellitus without complication 407376945 E11.9 -- not taking Toujeo;-- A1c was 6.2 (04/23/23) --> 6.6.( 4)-- recheck lab(s) today Diabetic p eripheral neuropathy 718514240 E11.40 (fingers in both hand feels cold all the time; and Rt toes feels numb)-- normal Vit B1, B6, B12 (B12 307 ON 12/25/21), and TFTs on 12/25/21 Essential hypertension 69183812 I10 -- recheck lab(s) within 5 days from today Hyperlipidemia 19586438 E78.5 -- recheck lab(s) within 5 days from today Osteopenia 048829523 M85 .9 -- normal Vit D and PTH level on 12/25/21-- DEXA done on 09/23/22 Overactive urinary bladder 978403679 N32.81 -- controlled w/ Solifenaci n Family his tory of Thalassemia 028212053 Z83.2 (sister) -- recheck lab(s) within 5 days from today Blind left eye 989385904 H54.42A5 (complete blindness in 2019 due to macular degenerati on, and diabetic retinopath y) -- no light perception Body mass index 30+ - obesity 210615950 Z68.38 (normal TFTs on 06/24/17) -- advised weight loss; no weight change since her last visit-- pt's BMI today is 38.1 (ideal is between 20-25) Hepatitis C screening 41 2768714 Z11.59 -- tested negative for Hepatitis C on 12/10/16 HIV screening 789493632 Z11.4 -- tested negative for HIV on 11/24/23 Active or passive immunization 147539217 Z23 -- pt is current with all her vaccinatio ns. Screening for malignant neoplasm of colon 062934110 Z12.11 -- Gastroente rologist Dr. Key--> Pt reported on 07/15/22 that she had a normal screening colonoscop y 07/14/[address] Key Screening for malignant neoplasm of breast 233685926 Z12.31 -- Last mammogram was done 07/04/23 at [facility] Screening for malignant neoplasm of cervix 831814389 Z12.4 Headache 64705738 R51.9 Health Concerns Section Related Observation LastModified by Organization Detai ls LastModified Time None Recorded Concern Status LastModified by Organization Details LastModified Time None Recorded Advance Directives Directive N: Payers Encounter Date Sequence Insurance Name Policy Number Policy Johnson Covered Member ID Johnson Member ID Guarantor Name 03/25/2023 1 [employer] [employer] [place] ([place]) 113 Arleth Sanchez [id number] Arleth Sanchez 07/07/2023 1 [employer] 113 Arleth Sanchez [id number] Arleth Sanchez 11/16/2023 1 [employer] 113 Arleth Sanchez [id number] Arleth Sanchez 03/02/2024 1 [employer] 113 Arleth Sanchez [id number] Arleth Sanchez 07/05/2024 1 [employer] 113 Arleth Sanchez [id number] Arleth Sanchez Notes Date Note Type Note Provider Name and Address Organization Details Recorded Time 03/25/2023 text/html Pt comes in for f/u of DM, HTN, HLD, Osteopenia, OAB and weight monitoring. Pt feels well and has no c/o. Pt has no new sx and no increasing sx. Patient denies any jaw or neck discomfort, left arm pain/left arm discomfort, chest discomfort/pain, diaphoresis, breathing symptoms/chest tightness, indigestion sx, n/v, any angina equivalent symptoms, etc. Mark Mcgregor MD [address] [place] [address] [address], [place], [address], [facility] 03/25/2023 18:01:26 07/07/2023 text/html Pt comes in for f/u of DM, HTN, HLD, Osteopenia, OAB and weight. Pt is also due for annual PE. Pt feels well and has no c/o. Pt has no new sx and no increasing sx. Patient denies any jaw or neck discomfort, left arm pain/left arm discomfort, chest discomfort/pain, diaphoresis, breathing symptoms/chest tightness, indigestion sx, n/v, any angina equivalent symptoms, etc. Mark Mcgregor MD [address] [facility] [address], [place], [address], [facility] 07/07/2023 17:51:52 11/16/2023 text/html Pt comes in for f/u DM, HTN, HLD, Osteopenia, OAB and weight. Pt feels well and has no c/o. Pt has no new sx and no increasing sx. Patient denies any jaw or neck discomfort, left arm pain/left arm discomfort, chest discomfort/pain, diaphoresis, breathing symptoms/chest tightness, indigestion sx, n/v, any angina equivalent symptoms, etc. Mark Mcgregor MD [address] [facility] [address], [place], [address], [facility] 11/16/2023 17:43:10 03/02/2024 text/html Pt comes in for f/u of DM, HTN, HLD, OAB, and weight. Pt feels well and has no c/o. Pt has no new sx and no increasing sx. Patient denies any jaw or neck discomfort, left arm pain/left arm discomfort, chest discomfort/pain, diaphoresis, breathing symptoms/chest tightness, indigestion sx, n/v, any angina equivalent symptoms, etc. Mark Mcgregor MD [address] [facility] [address], [place], [address], [facility] 03/02/2024 18:40:20 07/05/2024 text/html Pt comes in for f/u of DM, HTN, HLD, Osteopenia and weight monitoring. Pt feels well and has no c/o. Pt has no new sx and no increasing sx. Patient denies any jaw or neck discomfort, left arm pain/left arm discomfort, chest discomfort/pain, diaphoresis, breathing symptoms/chest tightness, indigestion sx, n/v, any angina equivalent symptoms, etc. Mark Mcgregor MD [address] [facility] [address], [place], [address], [facility] 07/05/2024 13:47:21 OBGyn Episode No OBEpisode recorded.
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
== END 2025-01-30 13:06 | disposition home or self-care (01) ==
LOC: ANHED 12:20
PROVIDERS: Emergency Provider Emergency Medicine; PCP Internal Medicine
DX: S80.212A Abrasion, left knee, initial encounter (principal); S60.811A Abrasion of right wrist, initial encounter; Z23 Encounter for immunization; H54.3 Unqualified visual loss, both eyes; R29.6 Repeated falls; W10.1XXA Fall (on)(from) sidewalk curb, initial encounter
CPT/HCPCS: 70450; 70486; 72125; 73502; 90471; 90715; 99284; L0140